=== PATIENT | female | born 1965 | race Caucasian/White ===

== ENCOUNTER 2019-09-30 01:36 | Outpatient (CLI) | payer OTHER, SELFPAY ==
[2019-09-30 18:20] LABS: SARS-CoV-2 RNA PCR Negative
== END 2019-09-30 01:37 | disposition home or self-care (01) ==
LOC: ANHCOVIDDT 01:36
PROVIDERS: PCP Family Medicine; Visit Provider Internal Medicine Gastroenterology
DX: Z01.812 Encounter for preprocedural laboratory examination (principal); Z11.59 Encounter for screening for other viral diseases
CPT/HCPCS: 87635; C9803; U0003

== ENCOUNTER 2021-02-23 10:09 | Emergency (ER) | payer OTHER, SELFPAY ==
[2021-02-23 11:21] VITALS: BP 141/92; PULSE 79; RESP 18; TEMP 36.4; O2SAT 100
--- NOTE | 2021-02-23 12:05 | ED.URI ---
HPI - URI/Sore Throat General Chief Complaint: Upper Respiratory Infection Stated Complaint: nasal congestion,headache Time Seen by Provider: 02/23/21 11:51 Source: patient and RN notes reviewed Mode of arrival: ambulatory Limitations: no limitations History of Present Illness HPI Narrative: Patient presents today complaining of sore throat and headache since yesterday. Denies any additional symptoms to include fever, cough, congestion, rhinorrhea. Currently rates her pain 4/10 and has been taking Tylenol with mild relief. She has been vaccinated against COVID-19 and influenza. MD elicited complaint: sore throat Related Data Home Medications Medication Instructions Recorded Confirmed atorvastatin [Lipitor] 20 mg PO DAILY 09/24/19 09/24/19 cetirizine [Zyrtec] 10 mg PO DAILY 09/24/19 09/24/19 estradiol [Estrace] 1 mg PO DAILY 09/24/19 09/24/19 omeprazole 20 mg PO DAILY 09/24/19 09/24/19 Allergies Allergy/AdvReac Type Severity Reaction Status Date / Time morphine Allergy Intermediate HIVES Verified 09/24/19 15:16 Sulfa (Sulfonamide Allergy Intermediate HIVES Verified 09/24/19 15:16 Antibiotics) Review of Systems Review of Systems: CONSTITUTIONAL: Denies body aches, fever, chills, or sweats. EYES: Denies visual changes, redness, or discharge. ENT: Denies rhinorrhea, congestion, or otalgia.+ Throat CARDIOVASCULAR: Denies chest pain, palpitations, or edema. RESPIRATORY: Denies cough or dyspnea. GASTROINTESTINAL: Denies abdominal pain, nausea, vomiting, or diarrhea. GENITOURINARY: Denies dysuria or hematuria. SKIN: Denies rash, itching, or wounds. MUSCULOSKELETAL: Denies back pain, joint pain, or myalgia. NEUROLOGIC: Denies numbness, tingling, or weakness.+ Headache PSYCH: Denies depression or anxiety. [facility] Social History Social History Gender identity (if verbalized by the patient): Female Sexual Orientation (if Verbalized by the Patient): Straight or Heterosexual Comments At time of signature, I have reviewed and agree with nursing past medical, surgical, social and family history unless otherwise noted. Please see nursing chart for further information. There is no relevant family history pertinent to the presenting complaint Exam Narrative: GENERAL: Well-appearing, well-nourished, and in no acute distress. HEAD: Normocephalic, atraumatic. EYES: EOMI. No redness or drainage. Conjunctivae normal. ENT: Mucous membranes pink and moist. Nares clear. No rhinorrhea. TMs normal bilaterally. Throat mildly erythematous without edema or exudate. Uvula midline. NECK: Normal AROM. Supple. No lymphadenopathy. CHEST: No respiratory distress. Clear to auscultation. HEART: Regular rate and rhythm. No murmur appreciated. Normal peripheral pulses. EXTREMITIES: Normal range of motion. No edema. SKIN: Warm, dry, no rash. Capillary refill normal. Normal skin turgor. NEURO: No focal deficits. Alert and oriented x3. Gait steady. PSYCH: Normal affect. No signs of depression or anxiety. Course Course Level of Care: Express Care Visit Vital Signs Vital signs: Vital Signs Temperature 97.5 F L 02/23/21 11:21 Pulse Rate 79 02/23/21 11:21 Respiratory Rate 18 02/23/21 11:21 Blood Pressure 141/92 H 02/23/21 11:21 Pulse Oximetry 100 02/23/21 11:21 Temperature 97.5 F L 02/23/21 11:21 Pulse Rate 79 02/23/21 11:21 Respiratory Rate 18 02/23/21 11:21 Blood Pressure 141/92 H 02/23/21 11:21 Pulse Oximetry 100 02/23/21 11:21 Reviewed. Pt has been instructed to follow up with her PCP regarding her elevated blood pressure today. MDM - URI/Sore Throat Differential Diagnosis Differential diagnosis: Likely upper respiratory infection, pharyngitis and other (Strep throat, COVID-19) Lab Data Attestation: I reviewed the patient's lab results. Lab results narrative: Rapid COVID-19 negative, rapid strep negative Critical Care Time Brijesh
== END 2021-02-23 12:46 | disposition home or self-care (01) ==
PROVIDERS: Emergency Provider Nurse Practitioner; PCP Family Medicine
DX: J06.9 Acute upper respiratory infection, unspecified (principal); Z20.822 Contact with and (suspected) exposure to COVID-19
CPT/HCPCS: 87081; 87426; 87880; 99213; C9803; G0463

== ENCOUNTER 2021-09-01 15:00 | Outpatient (NON) | payer OTHER, SELFPAY | END 2021-09-02 09:13 | disposition home or self-care (01) | PROVIDERS: PCP Family Medicine; Visit Provider Internal Medicine Gastroenterology | DX: K20.0 Eosinophilic esophagitis (principal) | CPT/HCPCS: 88305 ==

== ENCOUNTER 2023-11-26 11:50 | Emergency (ER) | payer OTHER, SELFPAY ==
[2023-11-26 12:03] VITALS: BP 144/93; PULSE 81; RESP 16; TEMP 36; O2SAT 100
--- NOTE | 2023-11-26 12:18 | ED.GENADULT ---
HPI - General Adult General Chief complaint: Upper Respiratory Infection Stated complaint: HOOKS,left ear pain Time Seen by Provider: 11/26/23 12:18 Source: patient, RN notes reviewed and old records reviewed Mode of arrival: ambulatory Limitations: no limitations History of Present Illness HPI narrative: 58-year-old female presents to the [facility] with complaints of a headache and left ear pain. HX of migraines and has plenty of medication to treated. Ear pain started after she returned from vacation. Reports it as a pressure Related Data Home Medications Medication Instructions Recorded Confirmed atorvastatin 20 mg tablet (Lipitor) 40 mg PO DAILY 09/24/19 11/26/23 cetirizine 10 mg tablet (Zyrtec) 10 mg PO DAILY 09/24/19 11/26/23 estradiol 1 mg tablet (Estrace) 0.5 mg PO DAILY 07/27/21 11/26/23 amitriptyline 25 mg tablet 25 mg PO HS 11/26/23 11/26/23 ezetimibe 10 mg tablet 5 mg PO DAILY 11/26/23 11/26/23 levocetirizine 5 mg tablet 5 mg PO DAILY 11/26/23 11/26/23 phentermine 15 mg capsule 15 mg PO DAILY 11/26/23 11/26/23 ubrogepant 100 mg tablet (Ubrelvy) 100 mg PO PRN PRN Migraine Headache 11/26/23 11/26/23 valacyclovir 1 gram tablet 1 mg PO PRN PRN Cold Sores 11/26/23 11/26/23 Allergies Allergy/AdvReac Type Severity Reaction Status Date / Time morphine AdvReac Mild HIVES Verified 11/26/23 12:11 Sulfa (Sulfonamide AdvReac Mild HIVES Verified 11/26/23 12:11 Antibiotics) Review of Systems Review of Systems: All systems reviewed & are unremarkable except as noted in HPI and below Constitutional: Constitutional: Reports no additional constitutional complaints Eyes: Eyes: Reports no additional eye complaints ENT: Reports as per HPI Cardiovascular: Cardiovascular: Reports no additional cardiovascular complaints, Denies chest pain and Denies dyspnea Respiratory: Respiratory: Reports no additional respiratory complaints, Denies chest congestion, Denies cough and Denies dyspnea Gastrointestinal: Gastrointestinal: Reports no additional gastrointestinal complaints, Denies abdominal pain, Denies nausea and Denies vomiting Musculoskeletal: Musculoskeletal: Reports no additional musculoskeletal complaints Integumentary/Breasts: Skin/Breast: Reports system reviewed and no additional complaints, except as docu Neurologic: Reports system reviewed and no additional complaints, except as documented Psychiatric: Psychiatric: Reports no additional psychiatric complaints Allergic/Immunologic: Allergic/Immunologic: Reports no additional allergic/immunologic complaints PMFSH Past Medical History Medical History Eosinophilic esophagitis Family hx of colon cancer Social History Social History Smoking status: Never smoker Alcohol intake: current Drinks per week: 2 Substance use type: does not use Living arrangements: with family Gender identity (if verbalized by the patient): Female Sexual Orientation (if Verbalized by the Patient): Straight or Heterosexual Spiritual care concerns: No Comments At the time of my signature, I reviewed and agree with the nursing past medical, surgical, social, and family history. There is no relevant family history pertinent to the patient complaint. Exam Const: General: cooperative, healthy appearing, comfortable, no acute distress, well developed, alert and well nourished Nutritional Appearance: well nourished Orientation/consciousness: patient oriented x3 Limitations: no limitations HENMT: Head: normal to inspection Ears: hearing grossly normal bilaterally, external ears normal and TM abnormal bulging bilateral, erythematous on the left and with fluid behind the TM on the right Face/Nose/Sinus: Normal external nose present, normal facial exam and face symmetric Face and sinus: normal facial exam and face symmetric Mouth: Yes Normal oral and palatal mucosa present,
== END 2023-11-26 12:38 | disposition home or self-care (01) ==
PROVIDERS: Emergency Provider Nurse Practitioner; PCP Family Medicine
DX: H66.92 Otitis media, unspecified, left ear (principal); R51.9 Headache, unspecified; K20.0 Eosinophilic esophagitis
CPT/HCPCS: 99213; G0463

== ENCOUNTER 2024-04-23 14:19 | Outpatient (CLI) | payer OTHER, SELFPAY | END 2024-04-23 14:20 | disposition home or self-care (01) | PROVIDERS: PCP Family Medicine; Visit Provider Nurse Practitioner Women's Health | DX: Z12.31 Encounter for screening mammogram for malignant neoplasm of breast (principal) | CPT/HCPCS: 77063; 77067 ==

== ENCOUNTER 2024-06-18 00:45 | Day surgery (SDC) | payer OTHER, SELFPAY ==
[2024-06-06 14:46] VITALS: BMI 25.1
--- OUTSIDE RECORDS SUMMARY | 2024-06-18 00:47 | XMS_ITS | Encounter Summary ---
Author Organization [facility] Address 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
--- OUTSIDE RECORDS SUMMARY | 2024-06-18 00:47 | XMS_ITS | Encounter Summary ---
Author Organization [facility] Address 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 Gender Identity Not on file Sexual Orientation Not on file documented as of this encounter Plan of Treatment Not on file documented as of this encounter Procedures Procedure Name Priority Date/Time Associated Diagnosis Comments POC , URINE Routine 04/23/2004 4:55 AM [employer]RE[employer] LAY UP WORKER HEMOGLOBIN AND HEMATOCRIT Routine 03/30/2004 12:27 PM [employer]RE[employer] LAY UP WORKER documented in this encounter Results * POC , URINE (04/23/2004 4:55 AM FIBREGLASS LAY UP WORKER) HCG QUAL URINE Negative Negative INTER FACE SYSTEM SPECIFIC GRAVITY UA 1.020 1.001 - 1.035 INTERFACE SYSTEM 04/23/2004 4:55 AM FIBREGLASS LAY UP WORKER us Aftab John MD POINT OF CARE TESTING Guillermina l Result INTERFACE SYSTEM Refer to clinic/hospital department * HEMOGLOBIN AND HEMATOCRIT (03/30/2004 12:27 PM FIBRE[employer]ASS LAY UP WORKER) HEMOGLOBIN 12.3 11.8 - 14.8 g/dL INTERFACE SYSTEM HEMATOCRIT 37.6 35.5 - 44.0 % INTERFACE SYSTEM 03/30/2004 12:2 7 PM F[employer]RE[employer] LAY UP WORKER us Aftab John MD HEMATOLOGY ORDERABLES Guillermina gandhi Result INTERFACE SYSTEM Refer to clinic/hospital department documented in this encounter Visit Diagnoses Diagnosis Benign neoplasm of ovary- Primary documented in this encounter Care Teams Charge Manager Relationship Specialty Start Date End Date Alpa Acharya MD [address] [address] PCP - General 02/06/15 documented as of this encounter
--- OUTSIDE RECORDS SUMMARY | 2024-06-18 00:47 | XMS_ITS | Clinical Summary ---
Author Organization [facility] Address [address] [facility] [address] [place] [address] Phone Care Team Providers Care Food Checker Name Role Phone Cecil Padilla MD Primary Care Provider [phone] Lj Bishop MD Unavailable [phone] Allergies Active Allergy Reactions Criticality Noted Date Comments Morphine Itching Low 10/18/2012 Sulfa Antibiotics Hives High 03/18/2011 Medications estradiol (ESTRACE) 0.5 MG Tablet Take 0.5 mg by mouth daily. 2 Active pantoprazole (PROTONIX) 40 MG Tablet Delayed Response Take 40 mg by mouth every morning. 2 Active montelukast (SINGULAIR) 10 MG Tablet Take 10 mg by mouth every evening. 2 Active atorvastatin (LIPITOR) 80 MG Tablet Take 80 mg by mouth nightly. 3 Active Qulipta 60 MG Tablet Take 1 tablet every day by oral route in the morning for 90 days. 4 Active Aimovig 70 MG/ML Solution Auto-injector INJECT 1 ML (70 MG TOTAL) INTO THE SKIN EVERY 30 DAYS 4 Active Levocetirizine Dihydrochloride 5 MG Tablet Take 1 tablet every day by oral route as directed for 90 days. Active Active Problems Problem Noted Date Diagnosed Date Seasonal allergies 03/06/2023 03/06/2023 Dysphagia 03/06/2023 03/06/2023 Thrombocytopenic disorder 07/26/20182023 Subclinical hyperthyroidism 07/26/201802/20 Gastroesophageal reflux disease without esophagi tis 01/21/2018 03/06/2023 Immunizations Immunization Administration Dates Next Due Influenza Vaccine, Quadrivalent, PF 12/20/2021,1 02/29/2020 Influenza, Injectable, Quadrivalent 03/24/2016 Influenza, Recombinant, Quadrivalent,injectable, Pf 02/04/2020 Influenza, Seasonal, Injectable, Undefined 01/05,01/09/2014 Family History Medical History Relation Name Comments Heart Disease Father Colon Cancer Mother Asthma Other Relationship ch ild ASTHMA Relation Name Status Comments Father Mother Other Social History Tobacco Use Types Packs/Day Years Used Date Smoking Tobacco: Never Smokeless Tobacco: Never Tobacco Cessation:Counseling Given: Not Answered Alcohol Use Standard Drinks/Week Comments Yes 0 (1 standard drink = 0.6 oz pur e alcohol) Comments Unknown Sex and Gender Information Value Date Recorded Sex Assigned at Not on file Legal Sex Female 10:21 AM LANDING MAN Gender Identity Not on file Sexual Orientation Not on file Last Filed Vital Signs Vital Sign Reading Time Taken Comments Blood Pressure 128/86 03/04/2024 8:27 AM LANDING MAN Pulse 78 03/04/2024 8:27 AM LANDING MAN Temperature 36.6 C (97.8 F) 03/04/2024 8:27 AM LANDING MAN Respiratory Rate 18 03/04/2024 8:27 AM LANDING MAN Oxygen Saturation 95% 03/04/2024 8:27 AM LANDING MAN Inhaled Oxygen Concentration - - Weight 80.6 kg (177 lb 9.6 oz) 03/04/2024 8:27 A M LANDING MAN Height 177.8 cm (5' 10 ) 03/04/2024 8:27 AM LANDING MAN Body Mass Index 25.48 03/04/2024 8:27 AM LANDING MAN Plan of Treatment Upcoming Encounters Date Type Department Care Team (Late st Contact Info) Description 03/03/2025 8:15 AM LANDING MAN Lab [facility] [address] [phone] Lab, Cc [facility] 03/03/2025 8:30 AM LANDING MAN Office Visit [facility] [address] [phone] Lj Bishop MD [address] [place] [phone] Health Maintenance Due Date Last Done Comments Hepatitis C Virus (HCV) Screening 1965 TdaP Immunization 1965 Colonoscopy 2009 Colorectal Cancer Screening 2009 Cologuard 2014 Immunochemical Fecal Occult Blood 2014 Pneumococcal Immunization (50+ years) (1 of 1 - PCV) 2014 Zoster Immunization (1 of 2) 2014 Mammogram 07/28/2019 07/27/2018, 08/2018, 08/04/2017, Additional history exists Influenza Immunization (#1) 10/22/202311/22, 12/29/2020, 02/04/2020, Additional history exists SARS-COV-2 Immunization ( season) 2023 11/01/2021, 12/29/2020, 05/24/2020, Additional history exists Respiratory Syncytial Virus (RSV) Immunization (Adult) (1 - 1-dose 75+ series) 2039 Cervical Cancer Screening (CCS) Discontinued Pap Smear Discontinued 03/16/2015 HPV/Cotest Discontinued Hepatitis B Immunization Aged Out No longer eligible based on patient's age to complete this topic Meningococcal Immunization (ACWY) Aged Out No longer eligible based on patient's age to complete this topic Rotavirus Immunization Aged Out No lo nger eligible based on patient's age to complete this topic Insurance Care Teams Food Checker Relationship Specialty Start Date End Date Cecil Padilla MD [address] [place] [address] PCP - General Family Medicine 01/14/22 Lj Bishop MD [address] [place] [phone] Consulting Physician Oncology 03/04/24
--- OUTSIDE RECORDS SUMMARY | 2024-06-18 00:47 | XMS_ITS | Encounter Summary ---
Author Organization [facility] Address [address] [place] [address] Care Team Providers Care Button Cutter Name Role Phone Alpa Acharya MD Primary Care Provider [phone] Encounter Details Date Type Department Care Team (Latest Contact Info) Description 12/16/1999 Outpatient Historical HIS [facility] John, Aftab Wray MD NO ADDRESS ON FILE Other screening mammogram (Primary Dx) Social History Tobacco Use Types Packs/Day Years Used Date Smoking Tobacco: Never Assessed Comments Unknown Sex and Gender Information Value Date Recorded Sex Assigned at Not on file Legal Sex Female 5:23 AM HEAD OF DATA Gender Identity Not on file Sexual Orientation Not on file documented as of this encounter Plan of Treatment Not on file documented as of this encounter Visit Diagnoses Diagnosis Other screening mammogram- Primary documented in this encounter Care Teams Button Cutter Relationship Specialty Start Date End Date Alpa Acharya MD [address] [facility] [address] [place] [address] PCP - General 02/06/15 documented as of this encounter
--- OUTSIDE RECORDS SUMMARY | 2024-06-18 00:47 | XMS_ITS | Clinical Summary ---
Author Organization [facility] Address [address] [place] [address] Care Team Providers Care Riding Instructor Name Role Phone Bhumika Eduardo SKILLED TRADES TEACHER Primary Care Provider [phone] Lindsey Colby MD Unavailable [phone] Deya Perea NP Unavailable [phone] Vijay Gregory MD Unavailable [phone] Allergies Active Allergy Reactions Criticality Noted Date Comments Morphine Itching Low 10/18/2012 Sulfa Antibiotics Hives High 03/18/2011 Medications estradiol (ESTRACE) 0.5 MG tablet Take 1 tablet (0.5 mg total) by mouth daily. 4 Active atogepant (QULIPTA) tabletIndications:M igraine without aura and without status migrainosus, not intractable Take 1 tablet (60 mg total) by mouth daily. 30 tablet 11 4 12/22/19 25 Active erenumab-aooe (AIMOVIG) 70 mg/mL injection (autoinjector)Indic ations:Migraine without aura and without status migrainosus, not intractable Inject 1 mL (70 mg total) into the skin every 30 (thirty) days. 1 mL 11 4 01/09/20 25 Active valACYclovir (VALTREX) 1 g tablet Take 0.5 tablets (500 mg total) by mouth daily. Active ezetimibe (ZETIA) 10 MG tabletIndications:M ixed hyperlipidemia Take 1 tablet (10 mg total) by mouth every other day. 45 tablet 3 5 Active fluticasone propionate (FLONASE) 50 MCG/ACT nasal sprayIndications:Se asonal allergies 2 sprays by Each Nostril route daily. 18.2 mL 5 5 Active montelukast (SINGULAIR) 10 MG tabletIndications:S easonal allergies Take 1 tablet (10 mg total) by mouth every evening. 90 tablet 3 5 Active pantoprazole EC (PROTONIX) 40 MG tabletIndications:G astroesophageal reflux disease without esophagitis Take 1 tablet (40 mg total) by mouth every morning. 90 tablet 3 5 Active cetirizine (ZYRTEC) 10 MG tabletIndications:S easonal allergies Take 1 tablet (10 mg total) by mouth daily as needed. 90 tablet 3 5 Active atorvastatin (LIPITOR) 80 MG tabletIndications:M ixed hyperlipidemia Take 1 tablet (80 mg total) by mouth nightly at bedtime. 90 tablet 3 5 Active erythromycin (ROMYCIN) 5 MG/GM (0.5%) ophthalmic ointmentIndications :Acute conjunctivitis of both eyes, unspecified acute conjunctivitis type Place into both eyes every 6 (six) hours for 7 days. 3.5 g 5 06/19/19 Active Active Problems Problem Noted Date Diagnosed Date Acute urinary tract infection 03/13/2024 Antalgic gait 03/13/2024 Bronchitis 03/13/2024 Cough 03/13/2024 Fever 03/13/2024 Pain in limb 03/13/2024 Pain in throat 03/13/2024 Posterior rhinorrhea 03/13/2024 Rupture of anterior cruciate ligament 03/13/2024 Skin lesion 03/13/2024 Upper respiratory infection 03/13/2024 Viral infection 03/13/2024 Symptoms involving urinary system 03/13/2024 Bright red rectal bleeding 03/05/2024 Decreased hearing of both ears 03/05/2024 Eustachian tube dysfunction, right 03/05/2024 Family history of colon cancer in mother 025 S/P dilatation of esophageal stricture Overview (03/13/2024): Last done 2020. Migraine without aura and wi thout status migrainosus, not intractable 01/09/2024 Acute conjunctivitis 09/18/2023 Allergic conjunctivitis of both eyes 07/06/2023 Dysphagia 03/06/2023 Seasonal allergies 03/06/2023 Low back pain 03/05/2023 Low back strain 03/05/2023 Sinusitis 04/25/2022 Leukopenia 07/07/2021 Tendinitis of left shoulder 06/08/2021 Arthritis of right sacroiliac joint 02/11/2020 Effusion of right knee 02/11/2020 Osteoarthritis of knee 02/03/2020 Chronic allergic conjunctivitis 06/04/2019 Multinodular goiter 08/29/2018 Subclinical hyperthyroidism 07/26/2018 Thrombocytopenic disorder 07/26/2018 Overweight 07/26/2018 Vitamin D deficiency 07/26/2018 Hyperlipidemia 06/18/2018 Basal cell carcinoma of skin 04/30/2018 Gastroesophageal reflux disease without esophagi tis 01/21/2018 Seasonal allergic rhinitis 01/21/2018 Pain in joint of left shoulder 01/15/2018 Anal fistula 10/03/2012 Rectal bleeding 10/03/2012 Resolved Problems Problem Noted Date Diagnosed Date Resolved Date Herpes labialis 04/30/2018 04/16/2024 Encounters Date Type Department Care Team Description 06/11/2024 10:00 AM CDT Office Visit [facility] Family & Internal [address] [address] Mildred Mcgowan MD Eye Problem (Acute possible pink eye / allergies) 06/11/2024 Telephone [facility] & Internal [address] [address] Bhumika Eduardo NP Medication Information (Eye oint ) 06/11/2024 Travel 05/14/2024 8:40 AM CDT Office Visit [facility] Internal [address] [phone] Bhumika Eduardo NP Follow Up 05/14/2024 Travel 05/07/2024 Telephone [facility] Internal [address] [phone] Bhumika Eduardo NP Allergy Injection 04/24/2024 7:20 AM SILVERWARE WASHER Office Visit [address], [address] [place] [phone] Opal Olivier MD Botox Procedure (Botox 155 u) 04/24/2024 Travel 04/23/2024 Scan [facility] Scanned, [facility] 04/18/2024 Scan [facility] Scanned, [facility] 04/17/2024 12:50 PM SILVERWARE WASHER - 04/17/2024 11:59 PM SILVERWARE WASHER Hospital Encounter [facility] [address] [place] [phone] Bhumika Eduardo NP Discharge Disposition: Home or Self Care (Routine Discharge) 04/17/2024 7:00 AM SILVERWARE WASHER Laboratory Only [facility] Internal [address] [phone] Bhumika Eduardo NP 04/17/2024 Travel 04/16/2024 7:20 AM SILVERWARE WASHER Office Visit [facility] Internal [address] [phone] Bhumika Eduardo NP Meet and Greet Provider 04/16/2024 Travel 04/01/2024 7:20 AM SILVERWARE WASHER Office Visit [facility] - [address], [address] [place] [phone] Deya Perea NP Migraine (No migraines /Botox is working) 04/01/2024 Travel 03/28/2024 Telephone [facility] Internal [address] [phone] Bhumika Eduardo NP Question 03/27/2024 9:00 AM SILVERWARE WASHER - 03/27/2024 11:59 PM SILVERWARE WASHER Hospital Encounter [facility] [address] [place], [place] [phone] Bradford Baer PA Discharge Disposition: Home or Self Care (Routine Discharge) 03/27/2024 8:00 AM SILVERWARE WASHER Office Visit [facility] Family & Internal Medicine [facility] [address] [place] [address] Bradford Baer PA URI/ENT Symptoms (Pt c/o cough X 2 months. Pt states she had chills and body aches yesterday. Pt was seen in [place] 2 weeks ago and treated with antibiotics ) 03/27/2024 Travel from Last 3 Months Immunizations Immunization Administration Dates Next Due Influenza (Generic) 11/20/2022,02/04/2020,2014,01/09/2014 Influenza Adult (Generic) 12/20/2021,12/29/2020, 03/24/2016 Family History Medical History Relation Comments Heart Disease Father 06/03/20 Lung Cancer Maternal Grandfather high cholesterol Maternal Grandfather Breast Cancer Maternal Grandmother high cholesterol Maternal Grandmother Cancer Mother 07/01/09 Colon Cancer Mother Relation Status Comments Father Alive Maternal Grandfather Maternal Grandmother Mother Social History Tobacco Use Types Packs/Day Years Used Date Smoking Tobacco: Never Passive Smoke Exposure: Never Smokeless Tobacco: Never Tobacco Cessation:Counseling Given: No Alcohol Use Standard Drinks/Week Comments Yes 0 (1 standard drink = 0.6 oz pur e alcohol) occational PHQ-2 Answer Date Recorded Patient Health Questionnaire-2 Score 0 06/11/2024 Comments No Sex and Gender Information Value Date Recorded Sex Assigned at Female 03/29/2024 7:53 AM SILVERWARE WASHER Legal Sex Female 7:15 PM CDT Gender Identity Female 04/16/2024 7:22 AM SILVERWARE WASHER Sexual Orientation Not on file Last Filed Vital Signs Vital Sign Reading Time Taken Comments Blood Pressure 137/87 06/11/2024 10:10 AM CDT Pulse 88 06/11/2024 10:10 AM CDT Temperature 36.2 C (97.2 F) 06/11/2024 10:10 AM CDT Respiratory Rate 18 06/11/2024 10:10 AM CDT Oxygen Saturation 98% 06/11/2024 10:10 AM CDT Inhaled Oxygen Concentration - - Weight 78.3 kg (172 lb 9.6 oz) 06/11/2024 10:10 AM CDT Height 177.8 cm (5' 10 ) 06/11/2024 10:10 AM CDT Body Mass Index 24.77 06/11/2024 10:10 AM CDT Plan of Treatment Upcoming Encounters Date Type Department Care Team (Late st Contact Info) Description 07/23/2024 7:20 AM CDT Office Visit [facility] [address] [facility] [place] [phone] Opal Olivier MD [address] [place] [phone] 09/30/2024 7:20 AM CDT Office Visit [facility] [address] [facility] [address], [address] [place] [phone] Deya Perea NP [address] [facility] [address] [place] [address] Health Maintenance Due Date Last Done Comments Colorectal Cancer Screening Colonoscopy (10 Years) 1964 Annual Physical 1967 Hepatitis C 1982 Pneumococcal Vaccine: 50+ Years (1 of 1 - PCV) 2014 Zoster Vaccines (1 of 2) 2014 Mammogram Screening 07/27/2020 07/27/2018, 08/04/2017, 05/14/2014, Additional history exists COVID-19 Vaccine ( - season) 2025 11/01/2021, 12/29/2020, 05/24/2020, Additional history exists Postponed from 10/22/2023 (Patient Refused) DTaP, Tdap and Td Vaccines (1 - Tdap) 04/16/2025 Postponed from 1983 (Patient Refused) RSV Immunization or 60+ Years (1 - Risk 60-74 years 1-dose series) 04/16/2025 Postponed fro m 2024 (Patient Refused) PHQ-2 (Physician [place]) Completed 06/11/2024 Meningococcal B Vaccine Aged Out No l onger eligible based on patient's age to complete this topic Meningococcal Vaccine Aged Out No elida pedro eligible based on patient's age to complete this topic RSV Immunizations Under 20 Months Aged Out No longer eligible based on patient's age to complete this topic Procedures Procedure Name Priority Date/Time Associated Diagnosis Comments COLLECTION VENOUS BLOOD VENIPUNCTURE Routine 04/17/2024 7:06 AM SILVERWARE WASHER Subclinical hyperthyroidism Diabetes mellitus screening Mixed hyperlipidemia TSH W/REFLEX Routine 04/17/2024 7:00 AM SILVERWARE WASHER Subclinical hyperthyroidism HEMOGLOBIN, GLYCOSYLATED Routine 04/17/2024 7:00 AM SILVERWARE WASHER Diabetes mellitus screening CBC W/DIFF AUTOMATED Routine 04/17/2024 7:00 AM SILVERWARE WASHER Diabetes mellitus screening COMPREHENSIVE METABOLIC PANEL Routine 04/17/2024 7:00 AM SILVERWARE WASHER Diabetes mellitus screening LIPID PANEL Routine 04/17/2024 7:00 AM SILVERWARE WASHER Mixed hyperlipidemia XR CHEST PA+LAT Routine 03/27/2024 9:22 AM SILVERWARE WASHER Persistent cough CORONAVIRUS (COVID-19) INFLUENZA A & B ANTIGEN IA PANEL Routine 03/27/2024 Suspected COVID-19 virus infection from Last 3 Months Results * TSH W/REFLEX (04/17/2024 7:00 AM SILVERWARE WASHER) TSH 1.149 0.358 - 3.74 uIU/ML 04/17/2024 1:51 PM SILVERWARE WASHER [facility] Comment: HIGH DOSES OF BIOTIN MAY INTERFERE WITH THIS TEST RESULT. CORRELATION TO CLINICAL HISTORY AND PRESENTATION RECOMMENDED. FREE T4 NOT INDICATED 04/17/2024 7:00 AM SILVERWARE WASHER Bhumika Eduardo NP LABORATORY Final Result Performing Organization Address [facility] Co de Phone Number [facility] [address] [place] [address], [place] [phone] * (ABNORMAL) HEMOGLOBIN, GLYCOSYLATED (04/17/2024 7:00 AM SILVERWARE WASHER) HGB A1C 5.7(H) <5.7 % 04/17/2024 1:44 PM SILVERWARE WASHER [facility] Comment: INCREASED RISK OF DIABETES <5.7% NON-DIABETES 5.7-6.4% INCREASED RISK FOR FUTURE DIABETES > OR = 6.5 CONSISTENT WITH DIABETES STANDARDS OF MEDICAL CARE IN DIABETES-2010 DIABETES CARE, 33(SUPP 1): S1-S61,2010 ESTIMATED AVG GLUCOSE 117 mg/dL 04/17/2024 1:44 PM [facility] 04/17/2024 7:00 AM SILVERWARE WASHER Bhumika Eduardo NP LABORATORY Final Result Performing Organization Address [facility] Co de Phone Number [facility] [address] [place] [address], [place] [phone] * (ABNORMAL) COMPREHENSIVE METABOLIC PANEL (04/17/2024 7:00 AM SILVERWARE WASHER) GLUCOSE 89 70 - 99 MG/DL 04/17/2024 1:51 PM SILVERWARE WASHER [facility] BUN 15 7 - 18 MG/DL 04/17/2024 1:51 PM [facility] CREATININE S/P/B 0.89 0.55 - 1.02 MG/DL 04/17/2024 1:51 PM [facility] SODIUM S/P/B 139 136 - 145 MMOL/L 04/17/2024 1:51 PM [facility] POTASSIUM S/P/B 4.7 3.5 - 5.1 MMOL/L 04/17/2024 1:51 PM [facility] CHLORIDE S/P/B 100 100 - 108 MMOL/L 04/17/2024 1:51 PM [facility] CO2 29.7 21 - 32 MMOL/L 04/17/2024 1:51 PM [facility] CALCIUM S/P/B 9.7 8.5 - 10.1 MG/DL 04/17/2024 1:51 PM [facility] BILIRUBIN TOTAL S/P/B 0.7 0.2 - 1.2 MG/DL 04/17/2024 1:51 PM [facility] TOTAL PROTEIN S/P/B 7.2 6.4 - 8.2 G/DL 04/17/2024 1:51 PM [facility] ALBUMIN S/P/B 4.4 3.4 - 5.0 G/DL 04/17/2024 1:51 PM [facility] AST 23 15 - 37 U/L 04/17/2024 1:51 PM [facility] ALT 44 14 - 55 U/L 04/17/2024 1:51 PM [facility] ALKALINE PHOSPHATASE S/P/B 82 50 - 136 U/L 04/17/2024 1:51 PM [facility] ANION GAP 9.3 5 - 15 MMOL/L 04/17/2024 1:51 PM [facility] BUN CREATININE RATIO 16.9 6 - 26 04/17/2024 1:51 PM [facility] A/G RATIO 1.6 1.0 - 2.0 RATIO 04/17/2024 1:51 PM SILVERWARE WASHER [facility] GFR ESTIMATE 74(L) >90 ML/MIN/1.7 3 M2 04/17/2024 1:51 PM [facility] Comment: NOTE: eGFR is not calculated for patients <18 years of age. This is an estimated GFR calculation using the new CKD EPI creatinine equation without race and so does not require a correction factor for race. This estimated GFR should not be used for calculating drug doses. 04/17/2024 7:00 AM SILVERWARE WASHER us Bhumika Eduardo NP LABORATORY Final Result [facility] [address] [place] [address], * LIPID PANEL (04/17/2024 7:00 AM SILVERWARE WASHER) CHOLESTEROL 186 <200.0 MG/DL 04/17/2024 1:51 PM [facility] TRIGLYCERIDES 73 <150 MG/DL 04/17/2024 1:51 PM [facility] HDL 76 >40.0 MG/DL 04/17/2024 1:51 PM [facility] LDL (CALCULATED) 95 <100 MG/DL 04/17/19 1:51 PM [facility] NON HDL CHOLESTEROL 110 <130 MG/DL 04/17 1:51 PM [facility] CHOL/HDL RATIO 2.4 0.0 - 4.5 04/17/2024 1:51 PM [facility] VLDL CALCULATION 15 5 - 55 MG/DL 04/17/2024 1:51 PM [facility] LIPID INTERPRETATION 04/17/2024 1:51 PM [facility] Comment: [facility] REPORT RECOMMENDATIONS: ADULT CHILD LOW RISK: CHOLESTEROL <200 <170 TRIGLYCERIDE <150 --- HDL >=60 --- LDL <100 <110 BORDERLINE: CHOLESTEROL 200-239 170-199 TRIGLYCERIDE 150-199 --- HDL 40-59 --- LDL 100-159 110-129 HIGH RISK: CHOLESTEROL >=240 >=200 TRIGLYCERIDE >=200 --- HDL <40 --- LDL >=160 >=130 04/17/2024 7:00 AM SILVERWARE WASHER us Bhumika Eduardo NP LABORATORY Final Result [facility] [address] [place] [address], [place] [phone] * (ABNORMAL) CBC W/DIFF AUTOMATED (04/17/2024 7:00 AM SILVERWARE WASHER) WBC 4.39(L) 4.4 - 11.0 x10'3/uL 04/17/2024 1:18 PM [facility] RBC 4.38(L) 4.50 - 5.10 x10'6/uL 04/17/2024 1:18 PM [facility] HGB 13.2 12.3 - 15.3 G/DL 04/17/2024 1:18 PM [facility] HCT 41.5 35.9 - 44.6 % 04/17/2024 1:18 PM [facility] MCV 94.7 80.0 - 96.0 FL 04/17/2024 1:18 PM [facility] MCH 30.1 25.3 - 30.9 PG 04/17/2024 1:18 PM [facility] MCHC 31.8 31.0 - 34.1 G/DL 04/17/2024 1:18 PM [facility] RDW 14.2 12.4 - 15.1 % 04/17/2024 1:18 PM [facility] PLT 216 151 - 353 x10'3/uL 04/17/2024 1:18 PM [facility] MPV 10.5 9.6 - 12.0 FL 04/17/2024 1:18 PM [facility] RBC MORPHOLOGY NORMAL 04/17/2024 1:18 PM [facility] PLT MORPH. NORMAL 04/17/2024 1:18 PM [facility] WBC MORPHOLOGY NORMAL 04/17/2024 1:18 PM [facility] LYMPHOCYTES % 37.8 15.8 - 45.0 % 04/17/2024 1:18 PM [facility] NEUTROPHILS % 51.3 42.1 - 71.9 % 04/17/2024 1:18 PM [facility] MONOCYTES % 7.5 5.7 - 12.5 % 04/17/2024 1:18 PM [facility] EOSINOPHILS 2.5 0.0 - 5.6 % 04/17/2024 1:18 PM [facility] BASOPHILS 0.7 0.0 - 1.3 % 04/17/2024 1:18 PM [facility] ABS. NEUTROPHILS 2.25 1.40 - 6.00 x10'3/uL 04/17/2024 1:18 PM [facility] IMMATURE GRANS % 0.2 0.0 - 0.5 % 04/17/2024 1:18 PM [facility] ABS. LYMPHOCYTES 1.66 0.80 - 4.70 x10'3/uL 04/17/2024 1:18 PM [facility] 04/17/2024 7:00 AM SILVERWARE WASHER us Bhumika Eduardo NP LABORATORY Final Result [facility] [address] [place] [address], [place] [phone] * XR CHEST PA+LAT (03/27/2024 9:22 AM SILVERWARE WASHER) Anatomical Region Laterality Modality Chest Radiographic Lian ging 03/28/2024 7:25 AM SILVERWARE WASHER Impressions 03/28/2024 7:26 AM SILVERWARE WASHER =====IMPRESSION:===== No acute findings. Ordered By: BRADFORD BAER Interpreted By: Phillip Wick, 03/28/2024 7:25 AM Narrative 03/28/2024 7:26 AM SILVERWARE WASHER [facility] [address] [place] [address] EXAMINATION: PA AND LATERAL CHEST Exam date/time: 03/27/2024 9:13 AM Reason For Exam: persistent cough Comparison: July 23, 2009 Technique: 2 views. Findings: Heart size normal. Proximal airways unremarkable. No suspicious pulmonary lesion, pneumothorax, or pleural effusion. Procedure Note Alfredo Wick MD - 03/28/2024 [facility] [address] [facility] [place] [address] EXAMINATION: PA AND LATERAL CHEST Exam date/time: 03/27/2024 9:13 AM Reason For Exam: persistent cough Comparison: July 23, 2009 Technique: 2 views. Findings: Heart size normal. Proximal airways unremarkable. No suspiciouspulmonary lesion, pneumothorax, or pleural effusion. =====IMPRESSION:===== No acute findings. Ordered By: BRADFORD BAER Interpreted By: Phillip Wick, 03/28/2024 7:25 AM Bradford Baer PA GENERAL IMAGING Final Result * CORONAVIRUS (COVID-19) INFLUENZA A & B ANTIGEN IA PANEL (03/27/2024) CORONAVIRUS ANTIGEN IA NEGATIVE NEGATIVE -[id number], [place] INFLUENZA A NEGATIVE NEGATIVE MG-[id number], [place] INFLUENZA B NEGATIVE NEGATIVE MG-[id number], [place] Internal Control: VALID VALID -[id number] [place] NASAL STRUCTURE / Unknown 03/27/2024 us Bradford [facility] - GENERAL ORDERAB LES Final Result -[id number], [place] [address] [place] [address], from Last [address] [place] [address] [place] [address] Care Teams Riding Instructor Relationship Specialty [place] [address] [place], [place] [id number] PCP - General Nurse Practitioner Family 03/19/24 Lindsey Colby MD [address] [place] [address] [place] [phone] OBGYN 04/16/24 Deya Perea NP [address] [facility] [address] [place] [address] Nurse Practitioner NEUROLOGY 04/16/24 Vijay Gregory MD [address] [facility] [address] [place] [address] GASTROENTEROLOGY 04/16/24
--- OUTSIDE RECORDS SUMMARY | 2024-06-18 00:47 | XMS_ITS | Clinical Summary ---
Author Organization [facility] Address [address] [place] [address] Phone Care Team Providers Care Upfitter Name Role Phone Alpa Acharya MD Primary Care Provider +1- [phone] Allergies Active Allergy Reactions Criticality Noted Date Comments Morphine Itching Low 10/18/2012 Sulfa (Sulfonamide Antibiotics) Hives High 02/21 Medications estradiol (ESTRACE) 1 mg tablet Take 1 Tablet (1 mg) by mouth daily. 30 Tablet 07/11/2016 Active Active Problems Problem Noted Date Diagnosed Date Anal fistula 10/03/2012 Rectal bleeding 10/03/2012 Family History Medical History Relation Name Comments Healthy Daughter Other Father Heart Blockage, had triple bypass Breast Cancer Maternal Grandmother 60's Cancer Maternal Grandmother Breast Cancer Mother Colon Healthy Son Relation Name Status Comments Brother Alive Daughter Alive Father Alive Maternal Grandfather Maternal Grandmother Mother Paternal Grandfather Paternal Grandmother Son Alive Social History Tobacco Use Types Packs/Day Years Used Date Smoking Tobacco: Never Smokeless Tobacco: Never Alcohol Use Standard Drinks/Week Comments Yes 0 (1 standard drink = 0.6 oz pur e alcohol) SOCIALLY Comments No Sex and Gender Information Value Date Recorded Sex Assigned at Not on file Legal Sex Female 5:23 AM ARCHITECTURE INTERN Gender Identity Not on file Sexual Orientation Not on file Occupation Industry Job Start Date Job End Date Not on file Not on file Not on file Not on file Last Filed Vital Signs Vital Sign Reading Time Taken Comments Blood Pressure 110/76 03/16/2015 9:25 AM ARCHITECTURE INTERN Pulse 71 05/28/2013 4:52 PM CDT Temperature 36.5 C (97.7 F) 10/30/2012 3:20 PM CDT Respiratory Rate 20 01/28/2013 3:48 PM ARCHITECTURE INTERN Oxygen Saturation 99% 10/30/2012 3:20 PM CDT Inhaled Oxygen Concentration - - Weight 78 kg (172 lb) 03/16/2015 9:25 AM ARCHITECTURE INTERN Height 176.8 cm (5' 9.6 ) 03/16/2015 9:25 AM ARCHITECTURE INTERN Body Mass Index 24.96 03/16/2015 9:25 AM ARCHITECTURE INTERN Plan of Treatment Health Maintenance Due Date Last Done Comments DTAP/TDAP/TD VACCINES (1 - Tdap) 1983 HPV/Cotest (21-29) 1985 HPV/Cotest (30-65) 1994 FIT-DNA Q 3 years 2009 FIT/FOBT Q 1 year 2009 ZOSTER VACCINE (1 of 2) 2014 CERVICAL CANCER SCREENING 03/16/2016 PAP SMEAR 03/16/2016 03/16/2015, 02/21, 05/28/2013, Additional history exists Flex Sig/CT Colonography Q 5 years 10/03/2017 10/03/2012 BREAST CANCER SCREENING 07/28/2019 07/28/19 19, 08/04/2017, 05/27/2016, Additional history exists INFLUENZA VACCINE (#1) 2023 7, 01/05/2015, 01/09/2014 COLORECTAL SCREENING 11/09/2024 11/09/2014, 10/04/19 13 Colorectal Cancer Screening 11/09/2024 RSV VACCINE (60+ or ) (1 - 1-dose 75+ series) 2039 HEPATITIS B VACCINES Aged Out No long er eligible based on patient's age to complete this topic Procedures Procedure Name Priority Date/Time Associated Diagnosis Comments MAMMO SCREEN BILAT W OR WO CAD Routine 07/27/2018 10:01 AM CDT Visit for screening mammogram CERV/VAG CYTO SCREEN PAP W/O HPV Routine 03/16/2015 9:19 AM ARCHITECTURE INTERN 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 Findings: A bilateral screening mammogram was performed. Comparison is made to : 08/04/2017 There are scattered fibroglandular densities. No new masses, suspicious calcifications, or areas of asymmetry or distortion are identified. CAD was utilized. Impression: Negative screening mammogram. Recommendation: Routine annual follow-up Overall Assessment: Birads Category 1: Negative Mary Jane ORTIZ MAMMO ORDERABLES Final Result * CERV/VAG CYTOPATH, THIN PREP KEEPER HELPER (CP) (03/16/2015 9:19 AM ARCHITECTURE INTERN) CLINICAL INFORMATION SEE COMMENT 03/19/2015 8:56 AM ARCHITECTURE INTERN [facility] Comment:Information not prov ided LAST MENSTRUAL PERIOD SEE COMMENT 03/19/2015 8:56 AM ARCHITECTURE INTERN [facility] Comment:Information not prov ided PREV PAP: SEE COMMENT 03/19/2015 8:56 AM ARCHITECTURE INTERN [facility] Comment:05/28/13 NIL PREV BX: SEE COMMENT 03/19/2015 8:56 AM ARCHITECTURE INTERN [facility] Comment:Information not prov ided SOURCE Endocervix 03/19/2015 8:56 AM ARCHITECTURE INTERN [facility] ADEQUACY: SEE COMMENT 03/19/2015 8:56 AM ARCHITECTURE INTERN [facility] Comment: SATISFACTORY FOR EVALUATION Source inconsistent with history provided INTERPRETATION SEE COMMENT 03/19/2015 8:56 AM ARCHITECTURE INTERN [facility] Comment:Negative for intraep ithelial lesion or malignancy. COMMENT SEE COMMENT 03/19/2015 8:56 AM ARCHITECTURE INTERN [facility] Comment: This Pap test has been evaluated with computer assisted technology. ORTHOPEDICS TEACHER: SEE COMMENT 03/19/2015 8:56 AM ARCHITECTURE INTERN [facility] Comment: KMY, CT(ASCP) CT screening location: [facility] [address] [address] Endocervical Collection / Unknown 03/16/2015 9:19 AM ARCHITECTURE INTERN 03/16/2015 3:02 PM ARCHITECTURE INTERN Narrative [facility] - 03/19/2015 8:56 AM ARCHITECTURE INTERN Performing Organization Information: Site ID: Name: [facility] Address: [address] [address] Director: Rody Murphy MD us Aftab John MD PATHOLOGY/CYTOLOGY ORDERAB LES Final Result [facility] [address] [place] [address], * MO SIGMOIDOSCOPY FLX DX W/COLLJ SPEC BR/WA IF PFRMD (10/03/2012 3:11 PM CDT) Narrative [facility] - 10/03/2012 3:11 PM CDT Reza Pitt MD 10/03/2012 3:11 PM See office notes Procedure Note Reza Pitt MD - 10/03/2012 3:10 PM CDT See office notes us Reza Pitt MD GI PROCEDURE ORDERABLES Fin al Result [facility] from Last 3 Months or Most Recently Relevant to Health Maintenance Insurance Advance Directives For more information, please contact: [phone] * Full Code (Latest Code Status on File) Date Activated Date Inactivated Comments 10/30/2012 1:00 PM 10/30/2012 5:23 PM * Full Code Date Activated Date Inactivated Comments 10/30/2012 12:31 PM 10/30/2012 1:00 PM Care Teams Upfitter Relationship Specialty Start Date End Date Alpa Acharya MD [address] [address] PCP - General 02/06/15
--- OUTSIDE RECORDS SUMMARY | 2024-06-18 00:48 | XMS_ITS | Clinical Summary ---
Author Organization [facility] Address [address] [place] [address] Care Team Providers Care Ceramics Instructor Name Role Phone Liya Perea DO Primary Care Provider [phone]- [phone] Opal Olivier MD Unavailable +- [phone] Deya Perea NP Unavailable [phone] Lj Bishop MD Unavailable [phone] Allergies Active Allergy Reactions Criticality Noted Date Comments Morphine Itching Low 10/18/2012 Sulfa (Sulfonamide Antibiotics) Hives Reaction: Hives, Medications estradioL (ESTRACE) 0.5 mg tablet Take 1 tablet (0.5 mg total) by mouth daily [address] (PROTONIX) 40 mg EC tablet Take 1 tablet (40 mg total) by mouth real estate rental agent before breakfast 2 Active levocetirizine (XYZAL) 5 mg tablet Take 1 tablet (5 mg total) by mouth daily Active ezetimibe (ZETIA) 10 mg tablet Take 1 tablet (10 mg total) by mouth every other day Active Aimovig Autoinjector 70 mg/mL auto-injector subcutaneous injection Inject 1 mL (70 mg total) under the skin every 30 (thirty) days 4 Active Qulipta 60 mg tablet Take 60 mg by mouth as needed (migraine) 4 Active Active Problems Problem Noted Date Diagnosed Date Family history of colon cancer in mother 025 Assessment & Plan (03/05/2024 10:27 AM SEISMOGRAPH OBSERVER): Referral placed to patient's quality assurance clerk. Bright red rectal bleeding 03/05/2024 Assessment & Plan (03/05/2024 10:26 AM SEISMOGRAPH OBSERVER): Referred to Gastroenterology for further evaluation and management. Currently asymptomatic. Decreased hearing of both ears 03/05/2024 Assessment & Plan (03/05/2024 10:15 AM SEISMOGRAPH OBSERVER): Referred to ENT for further eval/mgmt. S/P dilatation of esophageal stricture Overview (03/05/2024): Last done 2020. Eustachian tube dysfunction, right 03/05/2024 Assessment & Plan (03/05/2024 10:26 AM SEISMOGRAPH OBSERVER): Recommended trial of [id number] Zyrtec D, take 1 tablet every 12 hours the next 7-10 days. May discontinue early if symptoms resolve. Referred to ENT for further evaluation management. Continue Flonase. Seasonal allergic rhinitis 03/05/2024 Assessment & Plan (03/05/2024 10:26 AM SEISMOGRAPH OBSERVER): Referred to highway worker. Patient reports that she gets an allergy shot 1 time a year. She can not remember the name of the shot. Continue oral antihistamine and Flonase. Hold Xyzal until done with Zyrtec D. Encounters Date Type Department Care Team Description 06/06/[address] [facility] Family Medicine at [place] [address] [place] [address] Liya Perea, colonoscopy report from Last 3 Months Immunizations Immunization Administration Dates Next Due Influenza, Quadrivalent, Rec ombinant, Egg Free, Preservative Free, Intramuscular 02/04/2020 Influenza, Quadrivalent, Spl it, Intramuscular 03/24/2016 Influenza, Quadrivalent, Spl it, Preservative Free, Intramuscular 12/20/2021,12/29/2020 Influenza, Trivalent, IM (MDV) 01/05/2015,2013 Influenza, Unspecified 03/05/2024(Deferr ed: Contraindication),11/20/2022,,12/29/2020,02/04/2020,03/24/2016,,01/09/2014 Surgical History Surgery Date Site/Laterality Comments SECTION HYSTERECTOMY Medical History Medical History Date Comments Migraine Hyperlipidemia Family History Medical History Relation Name Comments Heart disease Father Colon cancer Mother Relation Name Status Comments Father Mother Social History Tobacco Use Types Packs/Day Years Used Date Smoking Tobacco: Never Smokeless Tobacco: Never Tobacco Cessation:Counseling Given: Not Answered AUDIT-C Answer Date Recorded Q1: How often do you have a drink containing alc ohol? 2-4 times a month 03/05/2024 Q2: How many drinks containi ng alcohol do you have on a typical day when you are drinking? 1 or 2 03/05/2024 Q3: How often do you have si x or more drinks on one occasion? Never 03/05/2024 PHQ-2 Answer Date Recorded PHQ-2 Total Score 0 03/05/2024 Comments No Sex and Gender Information Value Date Recorded Sex Assigned at Not on file Legal Sex Female 1:21 AM SEISMOGRAPH OBSERVER Gender Identity Not on file Sexual Orientation Not on file Obstetrics History Last Filed Vital Signs Vital Sign Reading Time Taken Comments Blood Pressure 118/72 03/05/2024 9:43 AM SEISMOGRAPH OBSERVER Pulse 85 03/05/2024 9:43 AM SEISMOGRAPH OBSERVER Temperature 37.2 C (99 F) 03/05/2024 9:43 AM SEISMOGRAPH OBSERVER Respiratory Rate 16 03/05/2024 9:43 AM SEISMOGRAPH OBSERVER Oxygen Saturation 99% 03/05/2024 9:43 AM SEISMOGRAPH OBSERVER Inhaled Oxygen Concentration - - Weight 81.6 kg (179 lb 12.8 oz) 03/05/2024 9:43 AM SEISMOGRAPH OBSERVER Height 177.8 cm (5' 10 ) 03/05/2024 9:43 AM SEISMOGRAPH OBSERVER Body Mass Index 25.8 03/05/2024 9:43 AM SEISMOGRAPH OBSERVER Plan of Treatment Health Maintenance Due Date Last Done Comments Colon Cancer Screening-Colonoscopy 1964 Hepatitis C Screening 1964 Hepatitis B Screening 1982 Regular Well Visit/Exam 18-64 1982 Breast Cancer Screening-Mammogram 07/28/2019 07/27/2018, 08/04/2017, 05/27/2016, Additional history exists Covid-19 Vaccine ( season) 2025 11/01/2021, 12/29/2020, 05/24/2020, Additional history exists Postponed from 10/22/2023 (Patient declined, but will receive in the future) Depression Screening 03/05/2025 03/05/2024 Zoster Vaccine (1 of 2) 06/04/2025 Post poned from 2014 (Insurance / Financial) DTaP/Tdap/Td Vaccine (1 - Tdap) 03/01/2027 Postponed from 1975 (Insurance / Financial) Influenza Vaccine Discontinued 11/20/2022, , 12/20/2021, Additional history exists Pneumococcal vaccine <65 Aged Out No longer eligible based on patient's age to complete this topic Procedures Procedure Name Priority Date/Time Associated Diagnosis Comments SCREENING MAMMOGRAM Routine 05/27/2016 6 :35 PM CDT from Last 3 Months or Most Recently Relevant to Health Maintenance Results * Screening Mammogram (05/27/2016 6:35 PM CDT) Anatomical Region Laterality Modality Breast N/A Mammography 05/27/2016 6:35 PM CDT Narrative 05/27/2016 6:35 PM CDT LAUREANO PANIAGUA M.D. FINAL REPORT ACC# Date Time Exam [id number] May 27, 2016 13:35:00 BMV [id number] Scr Mamm hi 2v inc CAD Technologist(s): Barbara Chavira; ; EXAMINATION: Mammogram Technique: Bilateral Full-Field Digital Screening Mammogram was performed. Views obtained: bilateral craniocaudal and bilateral mediolateral oblique. Computer Aided Detection was performed. Mammogram Findings: The present examination has been compared to prior imaging studies performed at [facility] on 04/29/2013, 05/13/2014 and 05/22/2015. The breasts are heterogeneously dense, which may obscure small masses. There is no suspicious abnormality in either breast. IMPRESSION: Annual screening mammography is recommended. OVERALL FINAL ASSESSMENT: BI-RADS CATEGORY 1: Negative. Requested By: Aftab John M.D. Dictated By: LAUREANO PANIAGUA M.D. on May 30 2016 12:38P This document has been electronically signed by: LAUREANO PANIAGUA M.D. on May 30 2016 12:38P [id number] Procedure Note Miscellaneous, Notinfile / Provider, MD Yrn - 07/14/2016 LAUREANO PANIAGUA M.D. FINAL REPORT ACC# Date Time Exam [id number] May 27, 2016 13:35:00 BMV [id number] Scr Mamm hi 2v inc CAD Technologist(s): Barbara Chavira; ; EXAMINATION: Mammogram Technique: Bilateral Full-Field Digital Screening Mammogram was performed. Views obtained: bilateral craniocaudal and bilateral mediolateral oblique. Computer Aided Detection was performed. Mammogram Findings: The present examination has been compared to prior imaging studies performed at [facility] on04/29/2013, 05/13/2014 and 05/22/2015. The breasts are heterogeneously dense, which may obscure small masses. There is no suspicious abnormality in either breast. IMPRESSION: Annual screening mammography is recommended. OVERALL FINAL ASSESSMENT: BI-RADS CATEGORY 1: Negative. Requested By: Aftab John M.D. Dictated By: LAUREANO PANIAGUA M.D. on May 30 2016 12:38P This document has been electronically signed by: LAUREANO PANIAGUA M.D. on May 30 2016 12:38P [id number] us Not In File Miscellaneous IMG MAMMO PROCEDURES F inal Result from Last 3 Months or Most Recently Relevant to Health Maintenance Insurance [facility] CHOICE PLUS [facility] H[facility]/PPO Address: [place] [address] Care Teams Ceramics Instructor Relationship Specialty Start Date End Date Liya Perea DO [address] [facility] [address] [address] PCP - General Family Medicine 03/05/24 Opal Olivier MD [address] [place] [address] Consulting Physician Neurology 06/04/24 Deya Perea NP [address] [facility] [address] [place], [place] [address] Neurology 06/04/24 Lj Bishop MD [address] [place] [address] [place] [address] Referring Physician Medical Oncology 06/04/24
--- OUTSIDE RECORDS SUMMARY | 2024-06-18 00:48 | XMS_ITS | Referral Summary ---
Author Organization [facility] Address [address] [place] [address] Care Team Providers Care Potato Chip Fryer Name Role Phone Liya Perea DO Primary Care Provider [phone]- [phone] Opal Olivier MD Unavailable [phone]- [phone] Deya Perea NP Unavailable [phone] Lj Bishop MD Unavailable [phone] Encounters Date Type Department Care Team Description 06/06/[address] [facility] Family Medicine at [place] [address] [facility] [address] [place] [address] Liya Perea DO colonoscopy report from Last 3 Months Allergies Active Allergy Reactions Criticality Noted Date Comments Morphine Itching Low 10/18/2012 Sulfa (Sulfonamide Antibiotics) Hives Reaction: Hives, Medications estradioL (ESTRACE) 0.5 mg tablet Take 1 tablet (0.5 mg total) by mouth daily [address] (PROTONIX) 40 mg EC tablet Take 1 tablet (40 mg total) by mouth prism measurer before breakfast 2 Active levocetirizine (XYZAL) 5 [...] 025 Assessment & Plan (03/05/2024 10:27 AM MOISTURE METER OPERATOR): Referral placed to patient's thread cutter tender. Bright red rectal bleeding 03/05/2024 Assessment & Plan (03/05/2024 10:26 AM MOISTURE METER OPERATOR): Referred to Gastroenterology for further evaluation and management. Currently asymptomatic. Decreased hearing of both ears 03/05/2024 Assessment & Plan (03/05/2024 10:15 AM MOISTURE METER OPERATOR): Referred to ENT for further eval/mgmt. S/P dilatation of esophageal stricture 5 Overview (03/05/2024): Last done 2020. Eustachian tube dysfunction, right 03/05/2024 Assessment & Plan (03/05/2024 10:26 AM MOISTURE METER OPERATOR): Recommended trial of [id number] Zyrtec D, take 1 tablet every 12 hours the next 7-10 days. May discontinue early if symptoms resolve. Referred to ENT for further evaluation management. Continue Flonase. Seasonal allergic rhinitis 03/05/2024 Assessment & Plan (03/05/2024 10:26 AM MOISTURE METER OPERATOR): Referred to installation supervisor. Patient reports that she gets an allergy shot 1 time a year. She can not remember the name of the shot. Continue oral antihistamine and Flonase. Hold Xyzal until done with Zyrtec D. Immunizations Immunization Administration Dates Next Due Influenza, Quadrivalent, Rec ombinant, Egg Free, Preservative Free, Intramuscular 02/04/2020 Influenza, Quadrivalent, Spl it, Intramuscular 03/24/2016 Influenza, Quadrivalent, Spl it, Preservative Free, Intramuscular 12/20/2021,12/29/2020 Influenza, Trivalent, IM (MDV) 01/05/2015,2013 Influenza, Unspecified 03/05/2024(Deferr ed: Contraindication),11/20/2022,,12/29/2020,02/04/2020,03/24/2016,,01/09/2014 Social History Tobacco Use Types Packs/Day Years [...] on file Legal Sex Female 1:21 AM MOISTURE METER OPERATOR Gender Identity Not on file Sexual Orientation Not on file Last Filed Vital Signs Vital Sign Reading Time Taken Comments Blood Pressure 118/72 03/05/2024 9:43 AM MOISTURE METER OPERATOR Pulse 85 03/05/2024 9:43 AM MOISTURE METER OPERATOR Temperature 37.2 C (99 F) 03/05/2024 9:43 AM MOISTURE METER OPERATOR Respiratory Rate 16 03/05/2024 9:43 AM MOISTURE METER OPERATOR Oxygen Saturation 99% 03/05/2024 9:43 AM MOISTURE METER OPERATOR Inhaled Oxygen Concentration - - Weight 81.6 kg (179 lb 12.8 oz) 03/05/2024 9:43 AM MOISTURE METER OPERATOR Height 177.8 cm (5' 10 ) 03/05/2024 9:43 AM MOISTURE METER OPERATOR Body Mass Index 25.8 03/05/2024 9:43 AM MOISTURE METER OPERATOR Plan of Treatment Not on file Procedures Procedure Name Priority Date/Time Associated Diagnosis Comments SCREENING MAMMOGRAM Routine 05/27/2016 6 :35 PM CDT from Last 3 Months or Most Recently Relevant to Health Maintenance Results * Screening Mammogram (05/27/2016 6:35 PM CDT) Anatomical Region Laterality Modality Breast N/A Mammography 05/27/2016 6:35 PM CDT Narrative 05/27/2016 6:35 PM CDT LAUREANO PANIAGUA M.D. FINAL REPORT ACC# Date Time Exam [id number] May 27, 2016 13:35:00 BMV [id number] Scr Mamm hi 2v inc CAD Technologist(s): Barbara Chavira; ; EXAMINATION: Mammogram Technique: Bilateral Full-Field Digital Screening Mammogram was performed. Views obtained: bilateral craniocaudal and bilateral mediolateral oblique. Computer Aided Detection was performed. Mammogram Findings: The present examination has been compared to prior imaging studies performed at [facility] on 04/29/2013, 05/13/2014 and [...] PANIAGUA M.D. on May 30 2016 12:38P [id number] Procedure Note Miscellaneous, Notinfile / Provider, MD Yrn - 07/14/2016 LAUREANO PANIAGUA M.D. FINAL REPORT ACC# Date Time Exam [id number] May 27, 2016 13:35:00 BMV [id number] Scr Mamm hi 2v inc CAD Technologist(s): Barbara Chavira; ; EXAMINATION: Mammogram Technique: Bilateral Full-Field Digital Screening Mammogram was performed. Views obtained: bilateral craniocaudal and bilateral mediolateral oblique. Computer Aided Detection was performed. Mammogram Findings: The present examination has been compared to prior imaging studies performed at [facility] on04/29/2013, 05/13/2014 and 05/22/2015. [...] PANIAGUA M.D. on May 30 2016 12:38P [id number] us Not In File Miscellaneous IMG MAMMO PROCEDURES F inal Result from Last 3 Months or Most Recently Relevant to Health Maintenance Insurance [facility] CHO[facility] PLUS Care Teams Potato Chip Fryer Relationship Specialty Start Date End Date Liya Perea DO [address] [facility] [place] [address] PCP - General Family Medicine 03/05/24 Opal Olivier MD [address] [place] [address] Consulting Physician Neurology 06/04/24 Deya Perea NP [address] [facility] [facility] [address] [place] [address] Neurology 06/04/24 Lj Bishop MD [address] [place] [address] [address] [place] [address] Referring Physician Medical Oncology 06/04/24
--- OUTSIDE RECORDS SUMMARY | 2024-06-18 00:48 | XMS_ITS | Data Portability ---
Author Organization [place] - [employer], Main Office Address [address] [place] [address] Care Team Providers Care Marble Setter Helper Name Role Phone CECIL PADILLA Primary Care Provider [phone] CECIL PADILLA Referring Provider Assessment Encounter Date Assessment Date Assessment LastModified by Organization Details LastModified Time 07/06/2023 07/06/2023 58 yo F with - WELL ADULT VISIT - HLD - LEUKOPENIA, chronic - MULTINODULAR GOITER - GERD - SEASONAL ALLERGIC RHINITIS - MIGRAINE - VIT D DEFICIENCY - OVERWEIGHT - H/O HERPES LABIALIS - H/O BCC (Lt thigh) - H/O SUBCLINICAL HYPERTHYROIDISM - H/O THROMBOCYTOPENIA - FH OF COLON CANCER (Mom) US neck: 09/23/22. Annual labs: 07/13/22. US neck: 07/05/21. Annual labs: 07/01/21. X-ray Rt knee & Rt hip: 02/05/20. US thyroid: 08/12/19. Annual labs: 08/12/19. US thyroid: 08/10/18. Annual labs: 04/30/18. X-ray Lt shoulder: 01/18/18. Wt: 175(07/26/18) - 169(08/29/18) - 166(10/08/18) - 167(11/08/18) [Pt stopped] Wt: 170(08/19/19) [Pt stopped] Wt: 179(07/19/22) - 176(10/03/22) D/w pt about her findings, recent labs & imagines and further plan of care. Will do routine labs. Meds as directed. Risks Vs benefits of Aspirin 81mg po daily with food explained. Pt agreed. Diet and exercise explained in detail. Cont f/u with Hemat as per schedule. Cont f/u with Gyne at [place] as per schedule. Cont f/u with GI at [facility] as per schedule. Cont f/u with Derm at [place] as per schedule. Cont f/u with Ophtho at [place] as per schedule. Pt has finished PT and now doing at home. Offered to refer to Endo; but pt declined. Offered to refer to [facility] [employer] [facility]; but pt declined. HM: WWE - 06/13, normal as per pt. Cont f/u with Gyne as per schedule. Mammo - 01/25/23, normal. Pt gets with her Gyne. EGD - 09/10, good as per pt. Cont f/u with GI as per schedule. Colonoscopy - 09/10, normal as per pt. Cont f/u with GI every 5 yrs as per schedule. DEXA - 08/10/18, normal. Ordered. Tdap - 11/07. Flu - 12/20/21. Pneumo - Never. Pt declined. Shingrix - At pharmacy/HD. F/u in 2-3 weeks. US thyroid in 10/13. Annual labs in 07/14. [email or web address] Not available 07/06/2023 09:30:52 08/07/2023 08/07/2023 The patient gave verbal consent using TelePhonic services and the consent is documented in the medical record prior to using the service. The patient has been informed of what a TeleMedicine visit is. Patient is located at home. Provider is located at office. Names and roles of persons in addition to the patient and provider participating in telemedicine services include staff. The patient had a 11 minute TeleMedicine consultation via phone call to discuss the followin yo F with - HLD - LEUKOPENIA, chronic - MULTINODULAR GOITER - GERD - SEASONAL ALLERGIC RHINITIS - MIGRAINE - VIT D DEFICIENCY - OVERWEIGHT - H/O HERPES LABIALIS - H/O BCC (Lt thigh) - H/O SUBCLINICAL HYPERTHYROIDISM - H/O THROMBOCYTOPENIA - FH OF COLON CANCER (Mom) Annual labs: 07/06/23. X-ray L-spine: 03/06/23. US neck: 09/23/22. Annual labs: 07/13/22. US neck: 07/05/21. Annual labs: 07/01/21. X-ray Rt knee & Rt hip: 02/05/20. US thyroid: 08/12/19. Annual labs: 08/12/19. US thyroid: 08/10/18. Annual labs: 04/30/18. X-ray Lt shoulder: 01/18/18. Wt: 175(07/26/18) - 169(08/29/18) - 166(10/08/18) - 167(11/08/18) [Pt stopped] Wt: 170(08/19/19) [Pt stopped] Wt: 179(07/19/22) - 176(10/03/22) [Pt stopped] D/w pt about her findings, recent labs & imagines and further plan of care. Meds as directed. Risks Vs benefits of Aspirin 81mg po daily with food explained. Pt agreed. Black box warning of Montelukast explained to pt. Diet and exercise explained in detail. Cont f/u with Hemat as per schedule. Cont f/u with Gyne at [place] as per schedule. Cont f/u with GI at [facility] as per schedule. Cont f/u with Derm at [facility] as per schedule. Cont f/u with Ophtho at [place] as per schedule. Pt has finished PT and now doing at home. Offered to refer to Endo; but pt declined. Offered to refer to [facility] Operations [facility]; but pt declined. HM: WWE - 06/13, normal as per pt. Cont f/u with Gyne as per schedule. Mammo - 01/25/23, normal. Pt gets with her Gyne. EGD - 09/10, good as per pt. Cont f/u with GI as per schedule. Colonoscopy - 09/10, normal as per pt. Cont f/u with GI every 5 yrs as per schedule. DEXA - 08/10/18, normal. Ordered. Tdap - 11/07. Flu - 12/20/21. Pneumo - Never. Pt declined. Shingrix - At pharmacy/HD. F/u in 3-4 months. Lipids in 11/13. US thyroid in 10/13. Annual labs in 07/14. [email or web address] Not available 08/07/2023 17:26:23 10/16/2023 10/16/2023 58 yo F with - HLD - LEUKOPENIA, chronic - MULTINODULAR GOITER - GERD - SEASONAL ALLERGIC RHINITIS - MIGRAINE - VIT D DEFICIENCY - OVERWEIGHT - H/O HERPES LABIALIS - H/O BCC (Lt thigh) - H/O SUBCLINICAL HYPERTHYROIDISM - H/O THROMBOCYTOPENIA - FH OF COLON CANCER (Mom) US thyroid: 10/11/23. Annual labs: 07/06/23. X-ray L-spine: 03/06/23. US neck: 09/23/22. Annual labs: 07/13/22. US neck: 07/05/21. Annual labs: 07/01/21. X-ray Rt knee & Rt hip: 02/05/20. US thyroid: 08/12/19. Annual labs: 08/12/19. US thyroid: 08/10/18. Annual labs: 04/30/18. X-ray Lt shoulder: 01/18/18. Wt: 175(07/26/18) - 169(08/29/18) - 166(10/08/18) - 167(11/08/18) [Pt stopped] Wt: 170(08/19/19) [Pt stopped] Wt: 179(07/19/22) - 176(10/03/22) [Pt stopped] Wt: 180(10/16/23) D/w pt about her findings, recent labs & imagines and further plan of care. Meds as directed. Risks Vs benefits of Aspirin 81mg po daily with food explained. Pt agreed. Black box warning of Montelukast explained to pt. Diet and exercise explained in detail. Cont f/u with Neuro at [facility] as per schedule. Cont f/u with Hemat as per schedule. Cont f/u with Gyne at [place] as per schedule. Cont f/u with GI at [facility] as per schedule. Cont f/u with Derm at [facility] as per schedule. Cont f/u with Ophtho at [place] as per schedule. Pt has finished PT and now doing at home. Offered to refer to Endo; but pt declined. Offered to refer to [employer] Operations [employer]; but pt declined. HM: WWE - 06/13, normal as per pt. Cont f/u with Gyne as per schedule. Mammo - 01/25/23, normal. Pt gets with her Gyne. EGD - 09/10, good as per pt. Cont f/u with GI as per schedule. Colonoscopy - 09/10, normal as per pt. Cont f/u with GI every 5 yrs as per schedule. DEXA - 10/11/23, normal. Tdap - 11/07. Flu - 12/20/21. Pneumo - Never. Pt declined. Shingrix - At pharmacy/HD. F/u in 2 months. Annual labs in 07/14. US thyroid in 10/14. [email or web address] Not available 10/16/2023 10:01:17 12/13/2023 12/13/2023 58 yo F with - WT LOSS PROGRAM - HLD - LEUKOPENIA, chronic - MULTINODULAR GOITER - GERD - SEASONAL ALLERGIC RHINITIS - MIGRAINE - VIT D DEFICIENCY - OVERWEIGHT - H/O HERPES LABIALIS - H/O BCC (Lt thigh) - H/O SUBCLINICAL HYPERTHYROIDISM - H/O THROMBOCYTOPENIA - FH OF COLON CANCER (Mom) US thyroid: 10/11/23. Annual labs: 07/06/23. X-ray L-spine: 03/06/23. US neck: 09/23/22. Annual labs: 07/13/22. US neck: 07/05/21. Annual labs: 07/01/21. X-ray Rt knee & Rt hip: 02/05/20. US thyroid: 08/12/19. Annual labs: 08/12/19. US thyroid: 08/10/18. Annual labs: 04/30/18. X-ray Lt shoulder: 01/18/18. Wt: 175(07/26/18) - 169(08/29/18) - 166(10/08/18) - 167(11/08/18) [Pt stopped] Wt: 170(08/19/19) [Pt stopped] Wt: 179(07/19/22) - 176(10/03/22) [Pt stopped] Wt: 180(10/16/23) - 176(12/13/23) D/w pt about her findings, recent labs & imagines and further plan of care. Meds as directed. Risks Vs benefits of Aspirin 81mg po daily with food explained. Pt agreed. Black box warning of Montelukast explained to pt. Diet and exercise explained in detail. Cont f/u with Neuro at [place] as per schedule. Cont f/u with Hemat as per schedule. Cont f/u with Gyne at [place] as per schedule. Cont f/u with GI at [facility] as per schedule. Cont f/u with Derm at [facility] as per schedule. Cont f/u with Ophtho at [place] as per schedule. Pt has finished PT and now doing at home. Offered to refer to Endo; but pt declined. Offered to refer to [employer] Operations [employer]; but pt declined. Zepbound and Wegovy are not covered with her insurance. HM: WWE - 06/13, normal as per pt. Cont f/u with Gyne as per schedule. Mammo - 01/25/23, normal. Pt gets with her Gyne. EGD - 09/10, good as per pt. Cont f/u with GI as per schedule. Colonoscopy - 09/10, normal as per pt. Cont f/u with GI every 5 yrs as per schedule. DEXA - 10/11/23, normal. Tdap - 11/07. Flu - Pt gets at her pharmacy. Pneumo - Never. Pt declined. Shingrix - At pharmacy/HD. F/u in 2 months. Annual labs in 07/14. US thyroid in 10/14. Not available 12/13/2023 09:22:04 Plan of Treatment Reminders Order Date Submit Date Provider Last Modified By Organization Details Last Modified Time Details Appointments None recorded. Lab lipid panel, serum 2023 024 [email or web address] [employer] [facility], [address], [address], 4 08:13:10 HbA1c (hemoglobin A1c), blood 2023 024 [email or web address] [employer] [facility], [address], [address], 4 07:57:48 vitamin D, 25-hydroxy, total, serum 2023 024 [email or web address] [employer] [facility], [address], [address], 4 07:57:48 CBC w/ auto diff 2023 024 [facility], [address] , [place], [address], 4 15:16:46 CMP, serum or plasma 2023 024 [facility], [address], [place], [address], 4 15:24:09 lipid panel, serum 2023 024 [facility], [address] , [place], [address], 4 15:24:39 TSH, serum, reflex free T4 2023 [email or web address] [employer] [facility], [address], [address], 4 07:57:47 urinalysis complete, reflex culture 2023 024 [email or web address] [employer] [facility], [address], [address], 4 07:57:48 Referral None recorded. Procedures None recorded. Surgeries None recorded. Imaging US, thyroid - *Please call pt to schedule in [place]* 2023 024 [email or web address] 256 [facility] ([facility]), [address] [place], [address], 4 09:45:52 DEXA 2023 024 [email or web address] Not available 4 16:53:34 Medication Orders phentermine 30 mg capsule [address] [facility] #[id number], [address], [place], [address], 4 09:12:51 Qulipta 60 mg tablet 2023 024 [facility] #6926, [address], [place], [address], 4 09:12:49 atorvastati n 80 mg tablet 2023 024 [facility] #6926, [address], [place], [address], 4 09:12:49 ezetimibe 10 mg tablet 2023 024 [email or web address] [facility], [address] [facility], [place], [address], 4 09:13:02 levocetiriz ine 5 mg tablet 2023 024 [facility]6926, [address] [facility], [place], [address], 4 09:20:51 phentermine 15 mg capsule 2023 024 [email or web address] [facility], [address], [place], [address], 4 09:21:21 Zepbound 2.5 mg/0.5 mL subcutaneou s pen injector [address] [facility]6926, [address], [place], [address], 4 09:21:45 pantoprazol e 40 mg tablet,leydi yed release 2023 024 [email or web address] [facility], [address], [place], [address], 09:19:21 atorvastati n 80 mg tablet 2023 024 NATHAN [facility], [address], [place], [address], 09:20:51 ezetimibe 10 mg tablet 2023 024 [id number] [facility], [address], [place], [address], 09:20:55 levocetiriz ine 5 mg tablet 2023 024 [facility], [address], [place], [address], 17:53:36 sumatriptan 50 mg tablet 2023 024 [facility], [address], [place], [address], 17:54:52 atorvastati n 80 mg tablet 2023 024 [facility], [address], [place], [address], 17:53:33 ezetimibe 10 mg tablet 2023 024 [facility], [address], [place], [address], 17:53:33 levocetiriz ine 5 mg tablet 2023 024 [facility], [address], [place], [address], 4 09:24:13 azelastine 0.05 % eye drops 2023 024 [email or web address] [facility], [address], [place], [address], 15:09:20 Nurtec ODT 75 mg disintegrat ing tablet [address] [facility][id number], [address] [facility], [place], [address], 09:21:18 Kenalog 40 mg/mL suspension for injection 2023 024 [email or web address] Not available 09:21:13 Patient TargetsNo targets recorded. Patient Instructions Encounter Date Encounter Id Patient Instructions Last Modified By Organization Details Last Modified Time 08/07/2023 [id number] Due to the COVID-19 (Novel Coronavirus) pandemic, it is within this context (and with the understanding that this method of patient encounter is in the patient s best interest as well as the health and safety of other patients and the public) that [facility] is being provided [facility] this patient encounter rather than a [id number] visit. This patient encounter is appropriate at this time. This patient has been advised of the potential risks and limitations of this mode of treatment (including, but not limited to, the absence of in-person examination) and has agreed to be treated in a remote fashion despite these risks. Any and all of the patient s /patient s family s questions on this issue have been answered, and I have made no promises or guarantees to the patient. The patient has also been advised to contact this office for worsening conditions or problems, and seek emergency medical treatment and/or call 911 if the patient deems either necessary. HPI and/or vitals, if listed, were provided by the patient. [email or web address] Not available 08/07/2023 16:56:12 Reason for Referral None Reported. Results Created Date Observation Date Name Description Value Unit Range Abnormal Flag Note LastModifiedBy Organization Detail LastModifiedTime 07/06/1907/06/2023 CBC/C OMPLE TE BLD COUNT W/DIF F white blood cells 4.0 x10'3 /uL 4.2-10 .8 low Not Available [facility] (Lab) [address] [place], [address], 07/06/2023 15:16:46 07/06/19 24 07/06/2023 CBC/C OMPLE TE BLD COUNT W/DIF F red blood cells 4.36 x10'6 /uL 3.80-5 .20 Not Available [facility] (Lab) [address] [place], [address], 07/06/2023 15:16:46 07/06/19 24 07/06/2023 CBC/C OMPLE TE BLD COUNT W/DIF F hemoglobin 13.5 g/dL 12.0-1 5.6 Not Available [facility] (Lab) [address] [place], [address], 07/06/2023 15:16:46 07/06/19 24 07/06/2023 CBC/C OMPLE TE BLD COUNT W/DIF F hematocrit 41.4 % 35.7-4 5.7 Not Available [facility] (Lab) [address] [place], [address], 07/06/2023 15:16:46 07/06/19 24 07/06/2023 CBC/C OMPLE TE BLD COUNT W/DIF F mean red cell volume 95.0 fL 82.0-9 9.0 Not Available [facility] (Lab) [address] [place], [address], 07/06/2023 15:16:46 07/06/19 24 07/06/2023 CBC/C OMPLE TE BLD COUNT W/DIF F mean red cell hemoglobin 31.0 pg 27.0-3 3.0 Not Available [facility] (Lab) [address] [place], [address], 07/06/2023 15:16:46 07/06/19 24 07/06/2023 CBC/C OMPLE TE BLD COUNT W/DIF F mean RBC HGB concentratio n 32.6 g/dL 31.0-3 6.0 Not Available [facility] (Lab) [address] [place], [address], 07/06/2023 15:16:46 07/06/19 24 07/06/2023 CBC/C OMPLE TE BLD COUNT W/DIF F red cell distribution width 13.5 % 11.8-1 5.5 Not Available [facility] (Lab) [address] [place], [address], 07/06/2023 15:16:46 07/06/19 24 07/06/2023 CBC/C OMPLE TE BLD COUNT W/DIF F platelets 216 x10'3 /uL 150-40 0 Not Available [facility] (Lab) [address] [place], [address], 07/06/2023 15:16:46 07/06/19 24 07/06/2023 CBC/C OMPLE TE BLD COUNT W/DIF F mean platelet volume 11.3 fL 9.0-12 .4 Not Available [facility] (Lab) [address] [place], [address], 07/06/2023 15:16:46 07/06/19 24 07/06/2023 CBC/C OMPLE TE BLD COUNT W/DIF F neutrophils 54.6 % 39.0-7 2.0 Not Available [facility] (Lab) [address] [place], [address], 07/06/2023 15:16:46 07/06/19 24 07/06/2023 CBC/C OMPLE TE BLD COUNT W/DIF F lymphocytes 32.2 % 16.0-4 7.0 Not Available [facility] (Lab) [address] [place], [address], 07/06/2023 15:16:46 07/06/19 24 07/06/2023 CBC/C OMPLE TE BLD COUNT W/DIF F monocytes 8.1 % 5.0-12 .0 Not Available [facility] (Lab) [address] [place], [address], 07/06/2023 15:16:46 07/06/19 24 07/06/2023 CBC/C OMPLE TE BLD COUNT W/DIF F eosinophils 4.3 % 1.0-7. 0 Not Available [facility] (Lab) [address] [place], [address], 07/06/2023 15:16:46 07/06/19 24 07/06/2023 CBC/C OMPLE TE BLD COUNT W/DIF F basophils 0.5 % 0.0-2. 0 Not Available [facility] (Lab) [address] [place], [address], 07/06/2023 15:16:46 07/06/19 24 07/06/2023 CBC/C OMPLE TE BLD COUNT W/DIF F immature granulocytes 0.3 % 0.00-0 .50 Not Available [facility] (Lab) [address] [place], [address], 07/06/2023 15:16:46 07/06/19 24 07/06/2023 CBC/C OMPLE TE BLD COUNT W/DIF F neutrophils, absolute count 2.17 x10'3 /uL 1.5-8. 0 Not Available [facility] (Lab) [address] [place], [address], 07/06/2023 15:16:46 07/06/19 24 07/06/2023 CBC/C OMPLE TE BLD COUNT W/DIF F lymphocytes, absolute count 1.28 x10'3 /uL 1.07-3 .43 Not Available [facility] (Lab) [address] [place], [address], 07/06/2023 15:16:46 07/06/19 24 07/06/2023 CBC/C OMPLE TE BLD COUNT W/DIF F monocytes, absolute count 0.32 x10'3 /uL 0.29-0 .99 Not Available [facility] (Lab) [address] [place], [address], 07/06/2023 15:16:46 07/06/19 24 07/06/2023 CBC/C OMPLE TE BLD COUNT W/DIF F eosinophils, absolute count 0.17 x10'3 /uL 0.02-0 .53 Not Available [facility] (Lab) [address] [place], [address], 07/06/2023 15:16:46 07/06/19 24 07/06/2023 CBC/C OMPLE TE BLD COUNT W/DIF F basophils, absolute count 0.02 x10'3 /uL 0.01-0 .08 Not Available [facility] (Lab) [address] [place], [address], 07/06/2023 15:16:46 07/06/19 24 07/06/2023 CBC/C OMPLE TE BLD COUNT W/DIF F immature granulocytes ,absolute 0.01 x10'3 /uL 0.00-0 .05 Not Available [facility] (Lab) [address] [place], [address], 07/06/2023 15:16:46 07/06/19 24 07/06/2023 CBC/C OMPLE TE BLD COUNT W/DIF F nucleated red blood cells 0.0 % -0 Not Available [facility] (Lab) [address] [place], [address], 07/06/2023 15:16:46 07/06/19 24 07/06/2023 CBC/C OMPLE TE BLD COUNT W/DIF F NRBC# 0.00 x10'3 /uL Not Available [facility] (Lab) [address] [place], [address], 07/06/2023 15:16:46 07/06/19 24 07/06/2023 COMPR EHENS JUSTEN METAB OLIC PANEL sodium 136 mmol/ L 137-14 5 low Not Available [facility] (Lab) [address] [place], [address], 07/06/2023 15:24:09 07/06/19 24 07/06/2023 COMPR EHENS JUSTEN METAB OLIC PANEL potassium 4.0 mmol/ L 3.5-5. 1 Not Available [facility] (Lab) [address] [place], [address], 07/06/2023 15:24:09 07/06/19 24 07/06/2023 COMPR EHENS JUSTEN METAB OLIC PANEL chloride 103 mmol/ L 98-107 Not Available [facility] (Lab) [address] [place], [address], 07/06/2023 15:24:09 07/06/19 24 07/06/2023 COMPR EHENS JUSTEN METAB OLIC PANEL carbon dioxide 25 mmol/ L 22-30 Not Available [facility] (Lab) [address] [place], [address], 07/06/2023 15:24:09 07/06/19 24 07/06/2023 COMPR EHENS JUSTEN METAB OLIC PANEL anion gap 12.0 mmol/ L 14-22 low Not Available [facility] (Lab) [address] [place], [address], 07/06/2023 15:24:09 07/06/19 24 07/06/2023 COMPR EHENS JUSTEN METAB OLIC PANEL glucose 92 mg/dL 70-99 Not Available [facility] (Lab) [address] [place], [address], 07/06/2023 15:24:09 07/06/19 24 07/06/2023 COMPR EHENS JUSTEN METAB OLIC PANEL BUN 20 mg/dL 8-19 high Not Available [facility] (Lab) [address] [place], [address], 07/06/2023 15:24:09 07/06/19 24 07/06/2023 COMPR EHENS JUSTEN METAB OLIC PANEL creatinine 0.79 mg/dL 0.66-1 .25 Not Available [facility] (Lab) [address] [place], [address], 07/06/2023 15:24:09 07/06/19 24 07/06/2023 COMPR EHENS JUSTEN METAB OLIC PANEL GFR >60 Refer ence Range : Mead ge GFR Healt hy Adult : >60 mL/mi n/1.7 3 m2 Chron ic Kidne y Disea se: 15-60 mL/mi n/1.7 3 m2 Kidne y Failu re: <15/m L/min /1.73 m2 www.n iddk. nih.g ov The MDRD study equat ion has not been valid ated in child amanda <18 years of age; pregn ant women ; the elder ly >85 years of age; or in some racia l or ethni c subgr oups, such as Hiswa nics. Outsi de the valid ated skip eters , estim ated GFR is less accur ate, requi ring clini matty judgm ent on a case- by-ca se basis . Clini matty inter preta tion for other races and ages must be made by the clini eliceo. The MDRD study equat ion has not been valid ated for the evalu ation of serum creat inine relat ed to nutri baltazar l statu s or medic ation usage . For perso ns <18 years of age, a pedia tric GFR calcu lator is avail able on the [facility] websi te: https :[email or web address] w.jazzy milan.o rg/pr ofess ional s/kdo qi/gf r_cal culat or Not Available [facility] (Lab) [address] [place], [address], 07/06/2023 15:24:09 07/06/1907/06/2023 COMPR EHENS JUSTEN METAB OLIC PANEL alkaline phosphatase 87 U/L 38-126 Not Available [facility] (Lab) [address] [place], [address], 07/06/2023 15:24:09 07/06/19 24 07/06/2023 COMPR EHENS JUSTEN METAB OLIC PANEL alanine aminotransfe rase 47 U/L 0-35 high Not Available [facility] (Lab) [address] [place], [address], 07/06/2023 15:24:09 07/06/19 24 07/06/2023 COMPR EHENS JUSTEN METAB OLIC PANEL aspartate aminotransfe rase 42 U/L 15-37 high Not Available [facility] (Lab) [address] [place], [address], 07/06/2023 15:24:09 07/06/19 24 07/06/2023 COMPR EHENS JUSTEN METAB OLIC PANEL bilirubin, total 0.60 mg/dL 0.20-1 .30 Not Available [facility] (Lab) [address] [place], [address], 07/06/2023 15:24:09 07/06/19 24 07/06/2023 COMPR EHENS JUSTEN METAB OLIC PANEL calcium 9.3 mg/dL 8.4-10 .2 Not Available [facility] (Lab) [address] [place], [address], 07/06/2023 15:24:09 07/06/19 24 07/06/2023 COMPR EHENS JUSTEN METAB OLIC PANEL total protein 6.9 g/dL 6.3-8. 2 Not Available [facility] (Lab) [address] [place], [address], 07/06/2023 15:24:09 07/06/19 24 07/06/2023 COMPR EHENS JUSTEN METAB OLIC PANEL albumin 4.5 g/dL 3.4-5. 0 Not Available [facility] (Lab) [address] [place], [address], 07/06/2023 15:24:09 07/06/19 24 07/06/2023 COMPR EHENS JUSTEN METAB OLIC PANEL globulin 2.4 g/dL 2.6-4. 2 low Not Available [facility] (Lab) [address] [place], [address], 07/06/2023 15:24:09 07/06/19 24 07/06/2023 COMPR EHENS JUSTEN METAB OLIC PANEL A/G ratio 1.9 ratio 1.0-2. 0 Not Available [facility] (Lab) [address] [place], [address], 07/06/2023 15:24:09 07/06/19 24 07/06/2023 LIPID PANEL cholesterol 210 mg/dL 140-19 9 high [facility] KENDY NSUS RECOM MENDA TION FOR KASSY STERO L: ADULT CHILD LOW RISK: <200 <170 BORDE RLINE : <200- 239 ----- HIGH RISK: >240 >200 Not Available [facility] (Lab) [address] [place], [address], 07/06/2023 15:24:39 07/06/19 24 07/06/2023 LIPID PANEL triglyceride s 64 mg/dL 0-150 [facility] KENDY NSUS REPOR T RECOM MENDA TION FOR TRIGL YCERI LALO: ADULT CHILD LOW RISK: <150 ----- BODER LINE: 150-1 99 ----- HIGH RISK: >200 ----- Not Available [facility] (Lab) [address] [place], [address], 07/06/2023 15:24:39 07/06/19 24 07/06/2023 LIPID PANEL HDL cholesterol 93 mg/dL 40- Not Available [facility] (Lab) [address] [place], [address], 07/06/2023 15:24:39 07/06/19 24 07/06/2023 LIPID PANEL LDL cholesterol, calculated 104 mg/dL 0-130 NIH KENDY NSUS REPOR T RECOM MENDA TIONS FOR LDL: ADULT CHILD LOW RISK <130 <110 (OPTI MAL LDL) <100 ----- BORDE RLINE : 130-1 59 ----- HIGH RISK: >160 >130 A TRIGL YCERI DE RESUL T >400 INVAL IDATE S THE CALCU LATIO N FOR LDL FRACT IONAT ION - THE LDL RESUL T WILL NOT BE REPOR J CARLOS. Not Available [facility] (Lab) [address] [place], [address], 07/06/2023 15:24:39 07/06/1907/06/2023 HEMOG LOBIN A1C HA1C 5.5 % 4.0-6. 0 Diabe marni Scree zaida Crite franklin: <5.7% Consi stent with absen ce of diabe marni 5.7-6 .4% Consi stent with incre ased risk for diabe marni (pred iabet es) >OR=6 .5% Consi stent with diabe marni REFER ENCE: Diabe marni Care 2015, 39(Marshall ppl.1 ):s13 -s22 Not Available [facility] (Lab) [address] [place], [address], 07/06/2023 16:54:11 07/06/1907/06/2023 VITAM IN D 25-HY DROXY vd25oh 32.8 NG/mL 30-100 Vitam in D Statu s: Defic ient: <20 ng/mL Insuf ficie nt: 20-29 ng/mL Suffi cient : 30-10 0 ng/mL Not Available [facility] (Lab) [address] [place], [address], 07/06/2023 17:32:50 07/06/1907/06/2023 TEST NOT PERFO RMED test not performed SEE COMMEN T UNABL E TO PERFO RM URINA LYSIS WITH REFLE X DUE TO NOT URINE SPECI MEN REC'D IN LAB Not Available [facility] (Lab) [address] [place], [address], 07/06/2023 18:17:13 07/06/19 24 07/07/2023 TSH W/REF HELADIO FT4 TSH with reflex free T4 0.763 uIU/m L 0.465- 4.680 Not Available [facility] (Lab) [address] [place], [address], 07/07/2023 15:05:28 10/05/19 24 10/06/2023 LIPID PANEL , STAND ABNER cholesterol, total 163 mg/dL <200 normal Not Available [address] [address] [place], [address], 10/06/2023 22:13:05 10/05/19 24 10/06/2023 LIPID PANEL , STAND ABNER HDL cholesterol 74 mg/dL > or = 50 normal Not Available [address] [address] [place], [address], 10/06/2023 22:13:05 10/05/19 24 10/06/2023 LIPID PANEL , STAND ABNER triglyceride s 69 mg/dL <150 normal Not Available [facility] [address] [address] [place], [address], 10/06/2023 22:13:05 10/05/19 24 10/06/2023 LIPID PANEL , STAND ABNER LDL-choleste rol 74 mg/dL _(matty c) normal Refer ence range : <100 Vianey able range <100 mg/dL for prima ry preve ntion ; <70 mg/dL for patie nts with CHD or diabe tic patie nts with > or = 2 CHD risk facto rs. LDL-C is now calcu lated using the Rashmi n-Hop kins marisolu katerine n, which is a valid ated novel jonas menjivar than the Fried brisa equat ion in the estim ation of LDL-C . Rashmi john SS et al. CONOR. 2013; 310(1 9): 2061- 2068 (http ://ed ucati on.Qu estDi LocoMobi. com/f aq/FA Q164) Not Available [address], [address], 10/06/2023 22:13:05 10/05/19 24 10/06/2023 LIPID PANEL , STAND ABNER chol/HDLC ratio 2.2 (calc ) <5.0 normal Not Available [address], [address], 10/06/2023 22:13:05 10/05/19 24 10/06/2023 LIPID PANEL , STAND ABNER non HDL cholesterol 89 mg/dL _(matty c) <130 normal For patie nts with diabe marni plus 1 major ASCVD risk facto r, treat ing to a non-H DL-C goal of <100 mg/dL (LDL- C of <70 mg/dL ) is consi danya a mando pejames c optio n. Not Available [address], [address], 10/06/2023 22:13:05 10/05/19 24 10/06/2023 COMPR EHENS JUSTEN METAB OLIC PANEL glucose 87 mg/dL 65-99 normal Fasti ng refer ence inter ephraim Not Available [address], [address], 10/06/2023 22:13:05 10/05/19 24 10/06/2023 COMPR EHENS JUSTEN METAB OLIC PANEL urea nitrogen (BUN) 16 mg/dL 7-25 normal Not Available [address], [address], 10/06/2023 22:13:05 10/05/19 24 10/06/2023 COMPR EHENS JUSTEN METAB OLIC PANEL creatinine 0.83 mg/dL 0.50-1 .03 normal Not Available [address], [address], 10/06/2023 22:13:05 10/05/19 24 10/06/2023 COMPR EHENS JUSTEN METAB OLIC PANEL eGFR 81 mL/mi n/1.7 3m2 > or = 60 normal Not Available [address], [address], 10/06/2023 22:13:05 10/05/19 24 10/06/2023 COMPR EHENS JUSTEN METAB OLIC PANEL BUN/creatini ne ratio SEE NOTE: (calc ) 6-22 Not Repor j carlos: BUN and Creat inine are withi n refer ence range . Not Available [address], [address], 10/06/2023 22:13:05 10/05/19 24 10/06/2023 COMPR EHENS JUSTEN METAB OLIC PANEL sodium 139 mmol/ L 135-14 6 normal Not Available [address], [address], 10/06/2023 22:13:05 10/05/19 24 10/06/2023 COMPR EHENS JUSTEN METAB OLIC PANEL potassium 4.5 mmol/ L 3.5-5. 3 normal Not Available [address], [address], 10/06/2023 22:13:05 10/05/19 24 10/06/2023 COMPR EHENS JUSTEN METAB OLIC PANEL chloride 103 mmol/ L 98-110 normal Not Available [address], [address], 10/06/2023 22:13:05 10/05/19 24 10/06/2023 COMPR EHENS JUSTEN METAB OLIC PANEL carbon dioxide 27 mmol/ L 20-32 normal Not Available [address], [address], 10/06/2023 22:13:05 10/05/19 24 10/06/2023 COMPR EHENS JUSTEN METAB OLIC PANEL calcium 9.1 mg/dL 8.6-10 .4 normal Not Available [facility] [address], [address], 10/06/2023 22:13:05 10/05/19 24 10/06/2023 COMPR EHENS JUSTEN METAB OLIC PANEL protein, total 6.6 g/dL 6.1-8. 1 normal Not Available [address], [address], 10/06/2023 22:13:05 10/05/19 24 10/06/2023 COMPR EHENS JUSTEN METAB OLIC PANEL albumin 4.3 g/dL 3.6-5. 1 normal Not Available [address], [address], 10/06/2023 22:13:05 10/05/19 24 10/06/2023 COMPR EHENS JUSTEN METAB OLIC PANEL globulin 2.3 g/dL_ (calc ) 1.9-3. 7 normal Not Available [address], [address], 10/06/2023 22:13:05 10/05/19 24 10/06/2023 COMPR EHENS JUSTEN METAB OLIC PANEL albumin/glob ulin ratio 1.9 (calc ) 1.0-2. 5 normal Not Available [address], [address], 10/06/2023 22:13:05 10/05/19 24 10/06/2023 COMPR EHENS JUSTEN METAB OLIC PANEL bilirubin, total 0.4 mg/dL 0.2-1. 2 normal Not Available [address], [address], 10/06/2023 22:13:05 10/05/19 24 10/06/2023 COMPR EHENS JUSTEN METAB OLIC PANEL alkaline phosphatase 69 U/L 37-153 normal Not Available [address], [address], 10/06/2023 22:13:05 10/05/19 24 10/06/2023 COMPR EHENS JUSTEN METAB OLIC PANEL AST 25 U/L 10-35 normal Not Available [address], [address], 10/06/2023 22:13:05 10/05/19 24 10/06/2023 COMPR EHENS JUSTEN METAB OLIC PANEL ALT 28 U/L 6-29 normal Not Available [address], [address], 10/06/2023 22:13:05 10/05/19 24 10/06/2023 CBC (INCL UDES DIFF/ PLT) white blood cell count 4.2 thous and/u L 3.8-10 .8 normal Not Available [address], [address], 10/06/2023 22:13:06 10/05/19 24 10/06/2023 CBC (INCL UDES DIFF/ PLT) red blood cell count 4.42 irina on/uL 3.80-5 .10 normal Not Available [address], [address], 10/06/2023 22:13:06 10/05/19 24 10/06/2023 CBC (INCL UDES DIFF/ PLT) hemoglobin 13.5 g/dL 11.7-1 5.5 normal Not Available [address], [address], 10/06/2023 22:13:06 10/05/19 24 10/06/2023 CBC (INCL UDES DIFF/ PLT) hematocrit 42.4 % 35.0-4 5.0 normal Not Available [address], [address], 10/06/2023 22:13:06 10/05/19 24 10/06/2023 CBC (INCL UDES DIFF/ PLT) MCV 95.9 fL 80.0-1 00.0 normal Not Available [address], [address], 10/06/2023 22:13:06 10/05/19 24 10/06/2023 CBC (INCL UDES DIFF/ PLT) MCH 30.5 pg 27.0-3 3.0 normal Not Available [address], [address], 10/06/2023 22:13:06 10/05/19 24 10/06/2023 CBC (INCL UDES DIFF/ PLT) MCHC 31.8 g/dL 32.0-3 6.0 low Not Available [address], [address], 10/06/2023 22:13:06 10/05/19 24 10/06/2023 CBC (INCL UDES DIFF/ PLT) RDW 12.8 % 11.0-1 5.0 normal Not Available [address], [address], 10/06/2023 22:13:06 10/05/19 24 10/06/2023 CBC (INCL UDES DIFF/ PLT) platelet count 167 thous and/u L 140-40 0 normal Not Available [address], [address], 10/06/2023 22:13:06 10/05/19 24 10/06/2023 CBC (INCL UDES DIFF/ PLT) MPV 9.9 fL 7.5-12 .5 normal Not Available [address], [address], 10/06/2023 22:13:06 10/05/19 24 10/06/2023 CBC (INCL UDES DIFF/ PLT) absolute neutrophils 2268 cells /uL 1500-7 800 normal Not Available [address], [address], 10/06/2023 22:13:06 10/05/19 24 10/06/2023 CBC (INCL UDES DIFF/ PLT) absolute lymphocytes 1361 cells /uL 850-39 00 normal Not Available [address], [address], 10/06/2023 22:13:06 10/05/19 24 10/06/2023 CBC (INCL UDES DIFF/ PLT) absolute monocytes 269 cells /uL 200-95 0 normal Not Available [address], [address], 10/06/2023 22:13:06 10/05/19 24 10/06/2023 CBC (INCL UDES DIFF/ PLT) absolute eosinophils 260 cells /uL 15-500 normal Not Available [address], [address], 10/06/2023 22:13:06 10/05/19 24 10/06/2023 CBC (INCL UDES DIFF/ PLT) absolute basophils 42 cells /uL 0-200 normal Not Available [address], [address], 10/06/2023 22:13:06 10/05/19 24 10/06/2023 CBC (INCL UDES DIFF/ PLT) neutrophils 54 % normal Not Available [address], [address], 10/06/2023 22:13:06 10/05/19 24 10/06/2023 CBC (INCL UDES DIFF/ PLT) lymphocytes 32.4 % normal Not Available [address], [address], 10/06/2023 22:13:06 10/05/19 24 10/06/2023 CBC (INCL UDES DIFF/ PLT) monocytes 6.4 % normal Not Available [address], [address], 10/06/2023 22:13:06 10/05/19 24 10/06/2023 CBC (INCL UDES DIFF/ PLT) eosinophils 6.2 % normal Not Available [address], [address], 10/06/2023 22:13:06 10/05/19 24 10/06/2023 CBC (INCL UDES DIFF/ PLT) basophils 1.0 % normal Not Available [address], [address], 10/06/2023 22:13:06 10/05/19 24 10/06/2023 URINA LYSIS , COMPL ETE W/REF HELADIO TO CULTU RE color YELLOW yellow normal Not Available [address], [address], 10/06/2023 22:13:06 10/05/19 24 10/06/2023 URINA LYSIS , COMPL ETE W/REF HELADIO TO CULTU RE appearance CLEAR clear normal Not Available [address], [address], 10/06/2023 22:13:06 10/05/19 24 10/06/2023 URINA LYSIS , COMPL ETE W/REF HELADIO TO CULTU RE specific gravity 1.020 1.001- 1.035 normal Not Available [address], [address], 10/06/2023 22:13:06 10/05/19 24 10/06/2023 URINA LYSIS , COMPL ETE W/REF HELADIO TO CULTU RE pH 5.5 5.0-8. 0 normal Not Available [address], [address], 10/06/2023 22:13:06 10/05/19 24 10/06/2023 URINA LYSIS , COMPL ETE W/REF HELADIO TO CULTU RE glucose NEGATI VE negati ve normal Not Available [address] [address] [place], [address], 10/06/2023 22:13:06 10/05/19 24 10/06/2023 URINA LYSIS , COMPL ETE W/REF HELADIO TO CULTU RE bilirubin NEGATI VE negati ve normal Not Available [facility] [address], [address], 10/06/2023 22:13:06 10/05/19 24 10/06/2023 URINA LYSIS , COMPL ETE W/REF HELADIO TO CULTU RE ketones NEGATI VE negati ve normal Not Available [facility] [address], [address], 10/06/2023 22:13:06 10/05/19 24 10/06/2023 URINA LYSIS , COMPL ETE W/REF HELADIO TO CULTU RE occult blood TRACE negati ve abnormal Not Available [address] [place], [address], 10/06/2023 22:13:06 10/05/19 24 10/06/2023 URINA LYSIS , COMPL ETE W/REF HELADIO TO CULTU RE protein NEGATI VE negati ve normal Not Available [address], [address], 10/06/2023 22:13:06 10/05/19 24 10/06/2023 URINA LYSIS , COMPL ETE W/REF HELADIO TO CULTU RE nitrite NEGATI VE negati ve normal Not Available [facility] [address] [address] [place], [address], 10/06/2023 22:13:06 10/05/19 24 10/06/2023 URINA LYSIS , COMPL ETE W/REF HELADIO TO CULTU RE leukocyte esterase TRACE negati ve abnormal Not Available [facility] [address] [place], [address], 10/06/2023 22:13:06 10/05/19 24 10/06/2023 URINA LYSIS , COMPL ETE W/REF HELADIO TO CULTU RE WBC 0-5 /hpf < or = 5 normal Not Available [address], [address], 10/06/2023 22:13:06 10/05/19 24 10/06/2023 URINA LYSIS , COMPL ETE W/REF HELADIO TO CULTU RE RBC 0-2 /hpf < or = 2 normal Not Available [address], [address], 10/06/2023 22:13:06 10/05/19 24 10/06/2023 URINA LYSIS , COMPL ETE W/REF HELADIO TO CULTU RE squamous epithelial cells 6-10 /hpf < or = 5 abnormal Not Available [address], [address], 10/06/2023 22:13:06 10/05/19 24 10/06/2023 URINA LYSIS , COMPL ETE W/REF HELADIO TO CULTU RE bacteria FEW /hpf none seen abnormal Not Available [address], [address], 10/06/2023 22:13:06 10/05/19 24 10/06/2023 URINA LYSIS , COMPL ETE W/REF HELADIO TO CULTU RE hyaline cast NONE SEEN /lpf none seen normal Not Available [address], [address], 10/06/2023 22:13:06 10/05/19 24 10/06/2023 URINA LYSIS , COMPL ETE W/REF HELADIO TO CULTU RE note This urine was gretchen zed for the prese nce of WBC, RBC, bacte franklin, casts , and other forme d eleme nts. Only those eleme nts seen were repor j carlos. Not Available [address], [address], 10/06/2023 22:13:06 10/05/19 24 10/06/2023 REFLE XIVE URINE CULTU RE reflexive urine culture CULTU RE INDIC ATED - RESUL TS TO FOLLO W Not Available [address] [address] [place], [address], 10/06/2023 22:13:07 10/05/1910/06/2023 TSH W/REF HELADIO TO FT4 TSH w/reflex to FT4 1.25 mIU/L 0.40-4 .50 normal Not Available [facility] [address] , [place], [address], 10/06/2023 22:13:07 10/05/19 24 10/06/2023 VITAM IN D,25- OH,TO LAMBERTO,I A vitamin D,25-oh,tota l,ia 31 NG/mL 30-100 normal Vitam in D Statu s 25-OH Vitam in D: Defic iency : <20 ng/mL Insuf ficie ncy: 20 - 29 ng/mL Optim al: > or = 30 ng/mL For 25-OH Vitam in D testi ng on patie nts on D2-marshall pplem entat ion and patie nts for whom quant itati on of D2 and D3 fract ions is requi red, the [facility] eD(TM ) 25-OH VIT D, (D2,D 3), LC/MS /MS is recom darien d: order code 47406 (luciano ents >2yrs ). See Note 1 Note 1 For addit ional infor risa bland refer to http: //cindi Martinez stDia gnost ics.c om/fa q/FAQ 199 (This link is being provi ded for infor rosmery escamilla/ colton gandhi purpo ses only. ) Not Available [facility] [address] , [place], [address], 10/06/2023 22:13:08 10/05/1910/06/2023 HEMOG LOBIN A1C hemoglobin A1C 5.7 %_of_ total _HGB <5.7 high For someo ne witho ut known diabe marni, a hemog lobin A1c value betwe en 5.7% and 6.4% is consi stent with predi abete s and shoul d be confi rmed with a follo w-up test. For someo ne with known diabe marni, a value <7% indic ates that their diabe marni is well contr olled . A1c targe ts shoul d be indiv idual ized based on durat ion of diabe marni, age, comor bid condi tions , and other consi derat ions. This assay resul t is consi stent with an incre ased risk of diabe marni. Curre ntly, no conse nsus exist s regar ding use of hemog lobin A1c for diagn osis of diabe marni for child amanda. This test was perfo rmed on the [employer] muna c503 platf orm. Effec tive , a naye stout in test platf orms from the [employer] tect to the Nathen muna c503 may have shift ed HbA1c resul ts tianna red to histo rical resul ts. Based on labor atory valid ation testi ng condu cted at [employer] , the Nathen platf orm relat justen to the [employer] platf orm had an avera ge incre ase in HbA1c value of < or = 0.3%. This diffe rence is withi n accep j carlos varia bilit y estab lishe d by the Natio nal [employer] hemog lobin Stand olesyadiz ation Progr am. Note that not all indiv idual s will have had a shift in their resul ts and direc t tianna rison s betwe en histo rical and curre nt resul ts for testi ng condu cted on diffe rent platf orms is not recom darien d. Not Available [employer] [facility] [address], [place], [address], 10/06/2023 22:13:08 10/05/19 24 10/06/2023 CULTU RE, URINE , ROUTI NE culture, urine, routine SEE NOTE CULTU RE, URINE , ROUTI NE Micro Numbe r: [id number] Test Statu s: Final Speci men Sourc e: Urine Speci men Quali ty: Adequ ate Resul t: No Growt h Not Available [employer] [facility] [address] [place], [address], 10/06/2023 22:13:09 10/11/19 24 US, head + neck, soft tissu e [facility] [address] [facility] n [facility], [facility] [place] [address] Patien t Name: DARIA BENAVIDES Access ion #: [id number] Sex: F : 1965 1 Dictat ed By: Yolis Blair Attend ing Physic lori: DARIAN PADILLA Orderi ng Physic lori: DARIAN PADILLA Exam Date: 2023 14:52 PM Exam Name: US NECK/H EAD SOFT TISSUE Admitt ing Diagno sis(es ): ULTRAS OUND SOFT TISSUE [facility] INDICA TION: Multin odular goiter TECHNI QUE: Multip le real time sonogr aphic images of the thyroi d were obtain ed. COMPAR JULIANO: Prior exam dated 2022; 2021 FINDIN GS: The right thyroi d gland measur es 5.2 x 1.8 x 1.5 cm. The left thyroi d gland measur es approx imatel y 5.6 x 1.9 x 1.9 cm. The isthmu s measur es 0.5 cm. There is a TI-RAD S 4 nodule in the right inferi or thyroi d gland measur ing 0.8 cm. There are subcen timete r TI-RAD S 3 nodule s in the left thyroi d gland measur ing 0.2 and 0.3 cm. IMPRES BRAD: 1. A TI-RAD S 4 nodule in the right inferi or thyroi d gland measur ing 0.8 cm. Additi onal subcen timete r TI-RAD S 3 nodule s in the left thyroi d gland. No furthe r follow -up is recomm ended. [employer] TI-RAD S Catego michelle and Recomm endati ons (2017) : Page 1 [facility] [address] [place] [address] Patidana t Name: DARIA BENAVIDES Access ion #: [id number] Sex: F : 1965 1 Dictat ed By: Yolis Blair Attend ing Physic lori: FABIAN JOHNSON Orderi ng Physic lori: DARIAN PADILLA Exam Date: 2023 14:52 PM Exam Name: US NECK/H EAD SOFT TISSUE Admitt ing Diagno sis(es ): TR1: 0 points , Benign , No FNA TR2: 2 points , Not suspic ious, No FNA TR3: 3 points , Mildly suspic ious, FNA if > or = 2.5 cm, Follow if > or = 1.5 cm TR4: 4-6 points , Modera tely Suspic ious, FNA if > or = 1.5 cm, Follow if > or = 1.0 cm TR5: 7+ points , Highly Suspic ious, FNA if > or = 1.0 cm, Follow if > or = 0.5 cm Follow -up ultras ound guidel paul: TR5: yearly for 5 years, if no growth or change in TI-RAD S level TR4: at 1, 2, 3 and 5 years, if no growth or change in TI-RAD S level TR3: at 1, 3 and 5 years, if no growth or change in TI-RAD S level If increa sed but below thresh old for FNA, repeat in one year. Source : ACR Thyroi d Imagin g, Report ing and Data System (TI-RA DS): White Paper of the ACR TI-RAD S Commit fabiola. Rama et al., J Am Carlitos Radiol 2017;1 4:587- 595. Electr onical ly Signed by: Yolis Blair at 2023 16:00: 09 PM Page 2 [email or web address] [facility] (Imaging) [address] [place], [address], 10/16/2023 09:13:40 10/13/19 24 DEXA, axial skele ton [facility] [address] [place] [phone] Patidana t Name: DARIA BENAVIDES Access ion #: [id number] Sex: F : 1965 1 Dictat ed By: Dandy Recinos Attend ing Physic lori: DARIAN PADILLA Orderi Physic lori: DARIAN PADILLA Exam Date: 2023 15:03 PM Exam Name: XR DEXA AXIAL/ HIP/PE LVIS/S PINE Admitt ing Diagno sis(es ): INDICA TION: 58 years old, Female ; osteop orosis screen ing. Johnie white. DEXA SCAN: BONE DENSIT Y REPORT : AP SPINE (L1-L4 ) : T Score: 2.8 LEFT FEMORA L NECK : T Score: -0.6 RT FEMORA L NECK : T Score: -0.4 LEFT HIP TOTAL : T Score: 0.1 RT HIP TOTAL : T Score: 0.2 TOTAL BILAT HIP AVG: T Score: 0.2 IMPRES BRAD: Normal bone minera lizati on ------ ------ ------ ------ ------ ------ ------ ------ ----- *FRAX versio n 3.08. Fractu re probab ility calcul ated for an untrea j carlos patien t. Fractu re probab ility may be lower if the patien t has receiv ed treatm ent. T-scor e: compar juliano by chrystal white (BRENNEN) to a young adult popula unruly valdez for sex and ethnic ity (used for johnie white women and men >50 years) and classi fied by WHO criter ia. -1.0: normal Page 1 [facility] [address] [place] [address] [phone] Patien t Name: DARIA BENAVIDES Access ion #: [id number] Sex: F : 1965 1 Dictat ed By: Dandy Recinos Attend ing Physic lori: [facility] Physic [facility]: DARIAN PADILLA Exam Date: 2023 15:03 PM Exam Name: XR DEXA AXIAL/ HIP/PE LVIS/S PINE Admitt ing Diagno sis(es ): <-1.0 to >-2.5: osteop enia -2.5: osteop orosis -2.5 plus fragil ity fractu re: severe osteop orosis Z-scor e: compar ed by SD to an age, sex, and ethnic ity popula tion (used for premen opausa l women, men <50 years, and childr en instea d of T-scor e WHO criter ia 4) <-2.0: below expect ed range/ low bone densit y for age, and a cause should be sought Electr onical ly Signed by: Dandy Recinos at 2023 16:41: 55 PM Page 2 [email or web address] [facility] (Imaging) [address] [place], [address], 10/16/2023 09:13:40 Result Notes None recorded. Problems Name Problem SNOMED Code Status Onset Date Resolution Date Notes Provider Name and Address Organization Details Recorded Time Arthritis of right sacroilia c joint 29718362588 02448 Active 2019 Not Available [facility] 3 06:46:23 Tendiniti s of left shoulder 94037453098 88262 Active 2021 Not Available [facility] 3 06:46:23 Herpes labialis 0827914 Active 2018 Not Available [facility] 3 06:46:23 Pain of left shoulder joint 69309106810 778836 Active 2021 Not Available [facility] 3 06:46:23 Pain of left shoulder joint 93757108862 254465 Completed 201708/05/2019 Not Available [facility] 3 06:46:23 Pain in throat 809779039 Completed Not Available [facility] 3 06:46:24 Multinodu lar goiter 194695772 Active 2018 Not Available [facility] 3 06:46:24 Overweigh t 993332939 Active 2018 Not Available [facility] 3 06:46:24 Rupture of anterior cruciate ligament 664578871 Completed Not Available [facility] 3 06:46:24 Osteoarth ritis of knee 887851912 Active 2019 Not Available [facility] 3 06:46:24 Urinary symptoms 447567326 Completed Not Available [facility] 3 06:46:24 Basal cell carcinoma of skin 877286171 Active 2018 Not Available [facility] 3 06:46:24 Chronic allergic conjuncti vitis 02705586 Active 2019 Not Available [facility] 3 06:46:24 Gastroeso phageal reflux disease without esophagit is 243401065 Active 2017 Cecil Padilla MD [address] [place] [address], [id number] , [facility] 4 09:19:27 Thrombocy topenic disorder 364938432 Active 2018 Not Available [facility] 3 06:46:25 Effusion of joint of right knee 40916396057 9104 Active 2019 Not Available [facility] 3 06:46:25 Knee pain Completed Not Available [facility] 3 06:46:25 Bronchiti s 11698733 Completed Not Available [facility] 3 06:46:25 Viral disease 91549923 Completed Not Available [facility] 3 06:46:25 Vitamin D deficienc y 57700123 Active 2018 Not Available [facility] 3 06:46:25 Seasonal allergic rhinitis 684179680 Active 2017 Not Available [facility] 3 06:46:26 Fever 484642027 Completed Not Available [facility] 3 06:46:26 Dysphagia 87598417 Completed Not Available [facility] 3 06:46:26 Subclinic al hyperthyr oidism 160487474 Active 2018 Not Available [facility] 3 06:46:26 Acute urinary tract infection 545701066 Completed Not Available [facility] 3 06:46:26 Seasonal allergy 840244186 Completed Not Available [facility] 3 06:46:27 Cough 32891990 Completed Not Available [facility] 3 06:46:27 Upper respirato ry infection 59774399 Completed Not Available [facility] 3 06:46:27 Hyperlipi demia 33681200 Active 2018 Not Available [facility] 3 06:46:27 Allergic rhinitis 68786369 Completed Trinidad Dill NP [address], [address], [place], [address] , [employer] 3 11:58:10 Antalgic gait 36875191 Completed Not Available [facility] 3 06:46:28 Posterior rhinorrhe a 06197556 Completed Not Available [facility] 3 06:46:28 Leukopeni a 77157006 Active 2021 Not Available [facility] 3 06:46:28 Pain in limb 45405832 Completed Not Available [facility] 3 06:46:28 Skin lesion 06664337 Completed Not Available formerly [facility] 3 06:46:28 Sinusitis 19835267 Active 2022 Cecil Padilla MD [address], [address], [place], [address] , [employer] 3 09:06:27 Allergic rhinitis 14531505 Active 2022 Trinidad Dill NP [address], [address], [place], [address] , [employer] 3 11:58:10 Low back strain 674621158 Active 2023 Cecil Padilla MD [address], [address], [place], [address] , [employer] [facility] 4 11:49:21 Low back pain 980298471 Active 2023 Cecil Padilla MD [address], [address], [place], [address] , [employer] [facility] 4 11:49:46 Migraine without aura 54721100 Active 2023 Cecil Padilla MD [address], [place], [address] , [employer] 4 11:51:20 Allergic conjuncti vitis of bilateral eyes 86858298400 9102 Active 2023 Cecil Padilla MD [address], [address], [place], [address] , [employer] 4 09:23:10 Acute conjuncti vitis 51171568 Active 2023 Cecil Padilla MD [address], [address], [place], [address] , [employer] [facility] 4 08:57:51 Rectal hemorrhag e 74563590 Active 2012 Cecil Padilla MD [address], [place], [address] , [employer] [facility] 4 09:19:27 Dysphagia 33525291 Active 2023 Cecil Padilla MD [address], [place], [address] , [employer] 4 09:19:27 Seasonal allergy 174412300 Active 2023 Cecil Padilla MD [address], [place], [address] , [employer] [facility] 4 09:19:27 Anal fistula 601696922 Active 2012 Cecil Padilla MD [address] [address], [place], [address] , [employer] 4 09:19:27 Problem Notes None recorded. Procedures Surgical History Date Name Laterality Status Provider Name and Address Organization Details Recorded Time Hysterectomy, Partial completed Not Available [facility] 04/20/2022 06:40:11 Imaging Results Imaging Date Name Status LastModified by Organiz ation Details LastModified Time 10/11/2023 US, head + neck, soft tissue completed [id number] [facility] (Imaging) [address] [place], [address], 10/16/2023 09:13:40 10/13/2023 DEXA, axial skeleton completed [facility] (Imaging) [address] [place], [address], 10/16/2023 09:13:40 Procedure Notes None recorded. Medical Equipment None Reported. Allergies Allergen ID Allergen Name Allergen Category Reaction Reaction Severity Criticality Documentation Date Start Date Code Code System Note Provider Name and Address Organization Details Recorded Time 81435 Substance with sulfonami de structure and antibacte rial mechanism of action (substanc e) medicatio n hives Not available Not available 04/20/20222011 07512 8003 SNOMED Cecil Padilla MD [address], [address], [employer] 4 09:19:16 37444 morphine medicatio n itching Not available Not available 04/20/20222012 7052 RxNorm Cecil Padilla MD [address], [address], [employer] 4 09:19:16 Medications Name Sig Start Date Stop Date Status Note LastModified by Organization Details LastModified Time cyclobenz aprine 10 mg tablet TAKE 1 TABLET BY MOUTH EVERY 12 HOURS NEEDED FOR 15 DAYS active Not Available Not Available No t Available amoxicill in 500 mg capsule active Not Available Not Available Not Available atorvasta tin 40 mg tablet TAKE 1 TABLET BY MOUTH EVERYDAY AT BEDTIME active Not Available Not Available No t Available atorvasta tin 80 mg tablet TAKE 1 TABLET BY MOUTH EVERYDAY AT BEDTIME active Not Available Not Available No t Available azelastin e 0.05 % eye drops INSTILL 1 DROP INTO AFFECTED EYE TWICE A DAY 2023 active Not Available Not Available Not Avai lable atorvasta tin 20 mg tablet TAKE 1 TABLET BY MOUTH EVERYDAY AT BEDTIME 04/26 completed Not Available Not Available Not Available tizanidin e 2 mg tablet Take 1 tablet(s ) every 12 hours by oral route as needed for 15 days. 04/30 completed Not Available Not Available Not Available cetirizin e 10 mg tablet TAKE 1 TABLET BY MOUTH EVERY DAY NEEDED active Not Available Not Available No t Available azithromy luis alberto 250 mg tablet TAKE 2 TABLETS (500 MG) BY ORAL ROUTE ONCE DAILY FOR 1 DAY THEN 1 TABLET (250 MG) BY ORAL ROUTE ONCE DAILY FOR 4 DAYS 01/16 completed Not Available Not Available Not Available ibuprofen 800 mg tablet 01/16 completed Not Available Not Available Not Available fluconazo le 150 mg tablet Take 1 tablet as needed by oral route as directed for 1 day. 07/26 completed Not Available Not Available Not Available valacyclo vir 1 gram tablet TAKE 1 TABLET BY MOUTH TWICE A DAY FOR 3 DAYS NEEDED ONLY FOR COLD SORE. active Not Available Not Available No t Available clarithro mycin 500 mg tablet active Not Available Not Available No t Available hydrocodo ne 5 mg-acetam inophen 325 mg tablet 10/23 completed Not Available Not Available Not Available Claritin 10 mg tablet Take 1 tablet(s ) every day by oral route for 90 days. 06/03 completed takes it around spring Not Available Not Available Not Available meloxicam 15 mg tablet Take 1 tablet every day by oral route in the morning for 30 days. active Not Available Not Available No t Available prednison e 20 mg tablet TAKE 2 TABLETS BY MOUTH ONCE DAILY FOR 5 DAYS TAKE WITH FOOD 04/26 completed Not Available Not Available Not Available phentermi ne 15 mg capsule TAKE 1 CAPSULE EVERY DAY BEFORE BREAKFAS T FOR 30 DAYS. 12/12 completed Not Available Not Available Not Available sumatript an 50 mg tablet Take 1 tablet as needed by oral route as directed for 30 days. 2023 active Not Available Not Available Not Avai lable phentermi ne 37.5 mg tablet TAKE 1 TABLET BY MOUTH ONCE DAILY BEFORE A MEAL 08/04 completed Not Available Not Available Not Available clindamyc in 1 %-benzoyl peroxide 5 % topical gel APPLY TO ACNE AREAS ON FACE EVERY MORNING active Not Available Not Available No t Available tramadol 50 mg tablet TAKE 1 TABLET BY MOUTH EVERY 8 HOURS NEEDED FOR PAIN 07/05 completed Not Available Not Available Not Available phentermi ne 30 mg capsule TAKE 1 CAPSULE BY MOUTH EVERY DAY IN THE MORNING active Not Available Not Available No t Available Kenalog 40 mg/mL suspensio n for injection Take 1 mL as needed by injectio n route as directed for 1 day. 12/12 completed Not Available Not Available Not Available Macrobid 100 mg capsule Take 1 capsule every 12 hours by oral route for 7 days. active Not Available Not Available No t Available amoxicill in 875 mg tablet TAKE 1 TABLET BY MOUTH EVERY 12 HOURS WITH FOOD UNTIL FINISHED 12/12 completed Not Available Not Available Not Available amitripty line 25 mg tablet Take 25 mg by oral route. 12/12 completed Not Available Not Available Not Available estradiol 1 mg tablet TAKE 1 TABLET BY MOUTH EVERY DAY active Not Available Not Available No t Available ciproflox acin 0.3 % eye drops PLEASE SEE ATTACHED FOR DETAILED DIRECTIO NS 12/12 completed Not Available Not Available Not Available pantopraz ole 40 mg tablet,de layed release TAKE 1 TABLET BY MOUTH EVERY DAY IN THE MORNING active Not Available Not Available No t Available omeprazol e 20 mg capsule,d elayed release TAKE 1 CAPSULE BY MOUTH 30 MINUTES BEFORE BREAKFAS T 07/05 completed Not Available Not Available Not Available diclofena c sodium 75 mg tablet,de layed release TAKE 1 TABLET BY MOUTH EVERY 12 HOURS NEEDED active Not Available Not Available No t Available mont[address] st 10 mg tablet TAKE 1 TABLET BY MOUTH EVERY DAY IN THE EVENING active Not Available Not Available No t Available estradiol 0.5 mg tablet 0.5 mg every 24 hours by oral route. active Not Available Not Available No t Available ergocalci ferol (vitamin D2) 1,250 mcg (50,000 unit) capsule TAKE ONE CAPSULE BY MOUTH ONE TIME PER WEEK DIRECTED active Not Available Not Available No t Available methylpre dnisolone 4 mg tablets in a dose pack TAKE 6 TABLETS ON DAY 1 DIRECTED ON PACKAGE AND DECREASE BY 1 TAB EACH DAY FOR A TOTAL OF 6 DAYS 06/08 completed Not Available Not Available Not Available ketorolac 60 mg/2 mL intramusc ular solution Inject 1 mL as needed by intramus cular route as directed for 1 day. 08/06 completed Patient t.nasreen ed well Not Available Not Available Not Available fluticaso ne propionat e 50 mcg/actua tion nasal spray,emily pension SPRAY 2 SPRAYS EVERY DAY DIRECTED NEEDED. active Not Available Not Available No t Available amitripty line 100 mg tablet TAKE 1 TABLET BY MOUTH NIGHTLY AT BEDTIME. active Not Available Not Available No t Available doxycycli ne hyclate 100 mg tablet TAKE 1 TABLET BY MOUTH TWICE A DAY DIRECTED FOR 10 DAYS 07/05 completed Not Available Not Available Not Available naproxen 500 mg tablet Take 1 tablet every 12 hours by oral route as directed for 30 days. 07/26 completed With food. Not Available Not Available Not Available amoxicill in 875 mg-potass ium clavulana te 125 mg tablet TAKE 1 TABLET BY MOUTH EVERY 12 HOURS FOR 10 DAYS 04/26 completed Not Available Not Available Not Available ezetimibe 10 mg tablet TAKE 1/2 TABLET BY MOUTH EVERY DAY IN THE MORNING active Not Available Not Available No t Available Flovent HFA 110 mcg/actua tion aerosol inhaler active Not Available Not Available Not Available olopatadi ne 0.2 % eye drops INSTILL 1 DROP INTO AFFECTED EYE(S) ONCE DAILY NEEDED. active Not Available Not Available No t Available Flovent Diskus 50 mcg/actua tion powder for inhalatio n Inhale 1 puff twice a day by inhalati on route before meals for [address] Gregory prescrib es//PRN Not Available Not Available Not Available levocetir izine 5 mg tablet Take 1 tablet every day by oral route as directed for 90 days. active Not Available Not Available No t Available Mucinex DM 60 mg-1,200 mg tablet,ex tended release 12 hr Take 1 tablet twice a day by oral route as directed for 14 days. 02/04 completed Not Available Not Available Not Available Adacel (Tdap Adolesn/A dult)(PF) 2 Lf-(2.5-5 -3-5)-5 Lf/0.5 mL IM syringe 01/16 completed Not Available Not Available Not Available GaviLyte- G 236 gram-22.7 4 gram-6.74 gram-5.86 gram oral solution active Not Available Not Available Not Available Suprep Bowel Prep Kit 17.5 gram-3.13 gram-1.6 gram oral solution MIX AND TAKE DIRECTED BY active Not Available Not Available No t Available lidocaine 5 % topical ointment active Not Available Not Available Not Available Afluria 1809-6839 45 mcg (15 mcg x 3)/0.5 mL intramusc ular suspensio n active Not Available Not Available Not Available clindamyc in 1 %-benzoyl peroxide 5 % topical gel with pump APPLY TO ACNE AREAS EVERY MORNING active Not Available Not Available No t Available Fluzone Quad (P F) 60 mcg(15 mcgx4)/0. 5 mL intramusc ular syringe 01/16 completed Not Available Not Available Not Available Aimovig Autoinjec tor 70 mg/mL subcutane ous auto-inje ctor INJECT 1 ML (70 MG TOTAL) INTO THE SKIN EVERY 30 DAYS active Not Available Not Available No t Available Afluria Quad 0820-7962 (PF) 60 mcg (15 mcg x 4)/0.5 mL IM syringe 01/16 completed Not Available Not Available Not Available Fluzone Quad 60 mcg (15 mcg x 4)/0.5 mL intramusc ular susp. 06/03 completed Not Available Not Available Not Available Ubrelvy 100 mg tablet PLEASE SEE ATTACHED FOR DETAILED DIRECTIO NS active Not Available Not Available No t Available Nurtec ODT 75 mg disintegr ating tablet Take 1 tablet every other day by oral route as needed for 30 days. 12/12 completed Not Available Not Available Not Available ID NOW COVID-19 Test Kit TEST DIRECTED 06/16 completed Not Available Not Available Not Available Flublok Quad (PF) 180 mcg (45 mcg x 4)/0.5 mL IM syringe PHARMACY ADMINIST ERED 02/11 completed Not Available Not Available Not Available Qulipta 60 mg tablet Take 1 tablet every day by oral route in the morning for 90 days. active Not Available Not Available No t Available Qulipta 30 mg tablet Take 1 tablet every day by oral route as directed for 30 days. 12/12 completed Not Available Not Available Not Available Zepbound 2.5 mg/0.5 mL subcutane ous pen injector Inject 2.5 mg every week by subcutan eous route as directed . 12/12 completed Not Available Not Available Not Available Vitals Date Recorded Body height Body mass index (BMI) Body weight Body temperature Heart rate Respiratory rate Oxygen saturation Oxygen saturation in Arterial blood by Pulse oximetry Systolic blood pressure Diastolic blood pressure Provider Name and Address Organization Details Last Updated DateTime 4 177.8 cm 25 kg/m2 98009.4 2 g 98.1 [degF] 86 /min 16 /min 98 % 98 % 122 mm[Hg] 76 mm[Hg] Ruben [facility] [employer] 4 09:12:02 Date Recorded Body height Body mass index (BMI) Body weight Body temperature Heart rate Respiratory rate Oxygen saturation Oxygen saturation in Arterial blood by Pulse oximetry Systolic blood pressure Diastolic blood pressure Provider Name and Address Organization Details Last Updated DateTime 4 177.8 cm 25.8 kg/m2 17374.9 8 g 98.1 [degF] 78 /min 16 /min 98 % 98 % 122 mm[Hg] 76 mm[Hg] Ruben [facility] [employer] 4 09:11:52 Date Recorded Body height Body mass index (BMI) Body weight Body temperature Heart rate Respiratory rate Oxygen saturation Oxygen saturation in Arterial blood by Pulse oximetry Systolic blood pressure Diastolic blood pressure Provider Name and Address Organization Details Last Updated DateTime 4 177.8 cm 25.3 kg/m2 70481.6 1 g 98.4 [degF] 80 /min 16 /min 98 % 98 % 118 mm[Hg] 72 mm[Hg] Ruben [facility] [employer] 4 09:06:13 Social History Question Answer Notes LastModified by Organization Details LastModified Time Tobacco Smoking Status Never Smoker Not Available [employer] 04/20/2022 06:39:52 Do You Have An Advance Directive? Yes MIGRATION.0301 [id number] Information not available 04/20/2022 Do You Wear A Helmet When Biking? No MIGRATION.0301 [id number] Information not available 04/20/2022 What Is Your Level Of Caffeine Consumption? Heavy MIGRATION.030 [id number] Information not available 04/20/2022 In The 14 Days Before Symptom Onset, Have You Had Close Contact With A Laboratory-conf irmed COVID-19 While That Case Was Ill? No MIGRATION.030 [id number] Information not available 04/20/2022 In The 14 Days Before Symptom Onset, Have You Had Close Contact With A Person Who Is Under Investigation For COVID-19 While That Person Was Ill? No MIGRATION.030 [id number] Information not available 04/20/2022 What Type Of Diet Are You Following? REGULAR Low Calories MIGRATION.030 [id number] Information not available 04/20/2022 What Is The Highest Grade Or Level Of School You Have Completed Or The Highest Degree You Have Received? 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 No MIGRATION.0301 [id number] Information not available 04/20/2022 What Is The Fluoride Status Of Your Home? Unknown MIGRATION.030 [id number] Information not available 04/20/2022 Are There Any Guns Present In Your Home? No MIGRATION.030 [id number] Information not available 04/20/2022 Do You Use Insect Repellent Routinely? Yes MIGRATION.0301 [id number] Information not available 04/20/2022 Where Do You Live? [place]House MIGRATION.030 [id number] Information not available 04/20/2022 Do You Have A Medical Power Of Percussion Instrument Tuner? Yes MIGRATION.0301 [id number] Information not available 04/20/2022 Do You Have Any Pets? No MIGRATION.0301 [id number] Information not available 04/20/2022 What Is Your Relationship Status? MIGRATION.0301 [id number] Information not available 04/20/2022 Do You Use Your Seat Belt Or Car Seat Routinely? Yes MIGRATION.0301 [id number] Information not available 04/20/2022 Do You Have Smoke And Carbon Monoxide Detectors In Your Home? Yes MIGRATION.0301 [id number] Information not available 04/20/2022 Are You Passively Exposed To Smoke? No MIGRATION.0301 [id number] Information not available 04/20/2022 Are There Any Smokers In Your House? No MIGRATION.0301 [id number] Information not available 04/20/2022 Do You Participate In Social Media? Yes MIGRATION.0301 [id number] Information not available 04/20/2022 Do You Feel Stressed (tense, Restless, Nervous, Or Anxious, Or Unable To Sleep At Night)? [id number] MIGRATION.0301 [id number] Information not available 04/20/2022 Do You Use Any Illicit Or Recreational Drugs? No MIGRATION.0301 [id number] Information not available 04/20/2022 Do You Use Sunscreen Routinely? Yes MIGRATION.0301 [id number] Information not available 04/20/2022 Has Tobacco Cessation Counseling Been Provided? No MIGRATION.0301 [id number] Information not available 04/20/2022 Have You Recently Traveled Abroad? No MIGRATION.0301 [id number] Information not available 04/20/2022 Are You Currently In School? No MIGRATION.0301 [id number] Information not available 04/20/2022 Do You Have Any Dietary Restrictions? No MIGRATION.0301 [id number] Information not available 04/20/2022 Do You Or Have You Ever Used Any Other Forms Of Tobacco Or Nicotine? No MIGRATION.0301 [id number] Information not available 04/20/2022 Sex: Female Functional Status Question Answer Note LastModified by Organizat ion Details LastModified Time What is your exercise level? Heavy MIGRATION.[id number] Information not available 04/20/2022 Mental Status None recorded. Family History Relationship Description Onset Age of this Age Resolved Age Notes LastModified by Organization Details LastModified Time Unspecified Relation Family history of malignant neoplasm [id number].[id number] Not available 04/20/2022 06:40:14 Unspecified Relation Heart disease MIGRATION.324 [id number] Not available 04/20/2022 06:40:14 Medical History Condition Response BLINDNESS N RHEUMATIC FEVER N KIDNEY STONES N BLADDER PROBLEMS N MRSA N OTHER # 1 N POLIO N LUNG DISEASE/DISORDER N RADIATION / CHEMOTHERAPY N COPD N Other # 2 N BLOOD DISEASES N SURGERY N EAR OR HEARING PROBLEMS N MUMPS N FEMALE PROBLEMS / INFECTIONS N BOWEL PROBLEMS N DEPRESSION (INCLUDING POST ) N STROKE/TIA N THYROID DISEASE N ULCERS N BENIGN PROSTATIC HYPERPLASIA N MEASLES N CERVICALGIA N TB SKIN TEST N MYOCARDIAL INFARCTION N PARAPELGIA N OBESITY N GERD/NAUSEA N ANEURYSM N URINARY/BLADDER/KIDNEY PROBLEMS N CORONARY ARTERY DISEASE (CAD) N MENIERE'S DISEASE N ADDICTION CONCERNS N ENDOMETRIOSIS N USE OF BLOOD THINNERS N SKIN PROBLEMS N EMPHYSEMA N GASTROINTESTINAL DISORDER N MUSCLE,JOINT OR BONE PROBLEMS N GASTROINTESTINAL BLEEDING N BLOOD CLOTS N ASTHMA N CATARACTS N ERECTILE DYSFUNCTION N GI PROBLEMS N CHF N Low Testosterone N NEUROPATHY N INFERTILITY N AIDS/HIV N FRACTURES N CHEMOTHERAPY / RADIATION N VISION/EYE PROBLEMS N LIVER DISEASE N MALE HYPOGONADISM N HYPERTENSION N TOURETTE'S N ANXIETY DISORDER N BLOOD TRANSFUSION N ANEMIA/BLOOD DISORDER N CHRONIC EAR INFECTIONS N BRONCHITIS N TUBERCULOSIS N GLAUCOMA N FOOT PROBLEM N DIVERTICULITIS N SLEEP APNEA N CHICKENPOX N ALLERGIES/HAYFEVER N INFECTIOUS DISEASE N PROSTATE N HEART ARRHYTHMIA N INSOMNIA N HIGH CHOLESTEROL / HYPERLIPIDEMIA N EYE PROBLEMS N HYPERTHYROIDISM N EATING DISORDER N EDEMA N CHRONIC PAIN SYNDROME N CONSTIPATION N CAROTID BLOCKAGE N BACK / NECK PROBLEMS N HAVE YOU BEEN HOSPITALIZED OR SEEN IN [facility] IN THE PAST YEAR ? N ATHEROSCLEROSIS N BREAST PROBLEMS N DIALYSIS N ECZEMA N FIBROMYALGIA N OSTEOPOROSIS N ARTHRITIS N NO SIGNIFICANT PAST MEDICAL HISTORY N APPENDICITIS N DIABETES, TYPE N BAD TEETH N HEARTBURN / REFLUX N ADD/ADHD N AUTISM SPECTRUM DISORDER (ASD) N HEPATITIS / LIVER DISEASE N PULMONARY DISEASE N GOUT N SLEEP DISORDER N ALZHEIMER'S DISEASE N PAIN N DEMENTIA N HERPES N SEIZURES/EPILEPSY N HEADACHES/MIGRAINES N VASCULAR DISEASE N PACEMAKER N DIZZINESS N HEART DISEASE/HEART PROBLEMS N KIDNEY DISEASE N SCARLET FEVER N MULTIPLE SCLEROSIS N DEVELOPMENTAL OR BEHAVIORAL DISORDERS N MENTAL DISORDER/ILLNESS N CANCER: SPECIFY N CARDIAC ARRHYTHMIA N PNEUMONIA N ATRIAL FIBRILLATION N Gall Stones N PULMONARY EMBOLISM N AUTOIMMUNE DISEASE N Gynecological HistoryNo gynecological history recorded. Obstetrics History GPAL:G 0 P 0 0 0 0 Immunizations Vaccine Type Date Status Note Provider Nam e and Address Organization Details Recorded Time influenza, unspecified formulation 7 completed Cecil Padilla MD [address] [place] [address], [address] [address], [place], [address], [facility] [employer] 12/13/2023 09:19:42 influenza, unspecified formulation 2 completed Cecil Padilla MD [address], [place], [address], [facility] [employer] [facility] 12/13/2023 09:19:42 influenza, unspecified formulation 1 completed Cecil Padilla MD [address], [place], [address], [facility] [employer] [facility] 12/13/2023 09:19:42 influenza, unspecified formulation 5 completed Cecil Padilla MD [address], [place], [address], [facility] [employer] 12/13/2023 09:19:42 influenza, unspecified formulation 4 completed Cecil Padilla MD [address], [place], [address], [facility] [employer] 12/13/2023 09:19:42 influenza, unspecified formulation 0 completed Cecil Padilla MD [address], [place], [address], [facility] [employer] 12/13/2023 09:19:42 COVID-19, mRNA, LNP-S, PF, 30 mcg/0.3 mL dose 1 completed Not Available formerly [facility] 04/20/2022 06:53:39 Influenza, split virus, quadrivalent, PF 1 completed Cecil Padilla MD [address], [place], [address], [facility] [employer] [facility] 12/13/2023 09:19:42 Influenza, split virus, trivalent, preservative 5 completed Cecil Padilla MD [address], [place], [address], [facility] [employer] [facility] 12/13/2023 09:19:42 Influenza, split virus, trivalent, preservative 4 completed Cecil Padilla MD [address], [place], [address], [place] [employer] 12/13/2023 09:19:42 Influenza, split virus, quadrivalent, preservative 7 completed Cecil Padilla MD [address], [place], [address], [place] [employer] 12/13/2023 09:19:42 Influenza, split virus, quadrivalent, PF 2 completed Cecil Padilla MD [address], [place], [address], [place] [employer] 12/13/2023 09:19:42 Past Encounters Encounter ID Performer Location Encounter Start Date Encounter Closed Date Diagnosis/Indication Diagnosis SNOMED-CT Code Diagnosis ICD10 Code Diagnosis Note [id number] [facility] [address] [place] [address] 06/16/2020 00:00:00 06/16/2020 11:45:56 [id number] [facility] [address] [place] [address] 10/15/2020 00:00:00 10/15/2020 11:30:45 [id number] [facility] [address] [place] [address] 05/28/2021 00:00:00 05/28/2021 18:04:03 [id number] [facility] [address] [place] [address] 06/08/2021 00:00:00 06/08/2021 09:37:41 [id number] [facility] [address] [place] [address] 07/07/2021 00:00:00 07/07/2021 10:25:05 [id number] [facility] [address] [place] [address] 12/20/2021 00:00:00 12/20/2021 09:17:52 [id number] Cecil Padilla MD [facility] Abdi [address] [place] [id number] 1 04/26/2022 08:45:10 04/26/2022 09:12:57 Hyperlipidemia 73506707 E78.5 Sinusitis 86777425 J32.9 Seasonal a llergic rhinitis 218852823 J30.2 [id number] Trinidad Dill NP [address] [address] 05/26/2022 08:36:40 05/26/2022 09:27:39 Allergic rhinitis 16579195 J30.9 [id number] Cecil Padilla MD [address] [address] 1 07/05/2022 08:44:08 07/05/2022 09:25:39 Adult health examination 044279041 Z00.00 Multinodular goiter 2375 98671 E04.2 Overweight 969319048 E66 .3 Vitamin D deficiency 347 24172 E55.9 Osteoarthr itis of knee 890426295 M17.9 Allergic rhinitis 470915 04 J30.9 [id number] Cecil Padilla MD [address] [address] 1 07/19/2022 16:22:45 07/19/2022 16:45:04 Multinodular goiter 763944101 E04.2 Overweight 177861803 E66 .3 Vitamin D deficiency 347 90787 E55.9 Improved Osteoarthr itis of knee 837028122 M17.9 Allergic rhinitis 699175 04 J30.9 Hyperlipidemia 41626878 E78.5 [id number] Cecil Padilla MD [address] [address] 1 10/03/2022 08:45:32 10/03/2022 09:27:49 Multinodular goiter 843767748 E04.2 Overweight 411290132 E66 .3 Allergic rhinitis 653157 04 J30.9 [id number] Cecil Padilla MD [address] [place] [address] 03/06/2023 11:36:51 03/06/2023 12:06:41 Low back strain 029680751 S39.012A Rt Low back pain 113458649 M54.50 Migraine without aura 56 891849 G43.765 [id number] Cecil Padilla MD [address] [address] 1 05/29/2023 16:43:18 05/29/2023 17:17:58 Allergic rhinitis 29772169 J30.9 [id number] Cecil Padilla MD [address] [address] 1 07/06/2023 09:06:02 07/06/2023 09:33:58 Multinodular goiter 891887276 E04.2 Overweight 788123714 E66 .3 Allergic rhinitis 250406 04 J30.9 Adult [facility] th examination 811605208 Z00.00 Screening for osteoporosis 126927608 Z13.820 Vitamin D deficiency 347 84437 E55.9 Improved Migraine without aura 56 830955 G43.009 Allergic conjunctivitis of bilateral eyes 8584630719 12153 H10.13 [id number] Cecil Padilla MD [address] [address] 1 08/07/2023 17:24:22 08/07/2023 17:57:20 Multinodular goiter 226617539 E04.2 Overweight 951548121 E66 .3 Allergic rhinitis 427686 04 J30.9 Vitamin D deficiency 347 72415 E55.9 Improved Migraine without aura 56 920744 G43.009 Hyperlipidemia 93870239 E78.5 [id number] Cecil Padilla MD [address] [address] 1 10/16/2023 09:04:22 10/16/2023 10:05:31 Hyperlipidemia 72140873 E78.5 Multinodular goiter 2375 27237 E04.2 Overweight 157633140 E66 .3 Allergic rhinitis 023170 04 J30.9 Vitamin D deficiency 347 65489 E55.9 Improved Migraine without aura 56 311366 G43.009 Gastroesop hageal reflux disease without esophagitis 314562179 K21.9 [id number] Cecil Padilla MD [facility] [address] [address] 12/13/2023 08:57:06 12/13/2023 09:19:59 Hyperlipidemia 67779085 E78.5 Multinodular goiter 2375 12590 E04.2 Overweight 643094326 E66 .3 Migraine without aura 56 782414 G43.009 Health Concerns Section Related Observation LastModified by Organization Detai ls LastModified Time None Recorded Concern Status LastModified by Organization Details LastModified Time None Recorded Advance Directives Directive Y: Payers Encounter Date Sequence Insurance Name Policy Number Policy Mccann Covered Member ID Mccann Member ID Guarantor Name 05/29/[address] [place] [id number] [facility] 07/06/[address] [place] [id number] [facility] 08/07/2023 1 [place] [id number] Daria M Mabrey [id number] Daria [facility] 10/16/2023 1 [place] [address] Daria Mabrey [id number] [facility] 12/13/2023 1 [facility] [id number] [place] [address] M[place]rey [id number] [facility] Notes Date Note Type Note Provider Name and Address Organization Details Recorded Time 07/06/2023 text/html Pt is here for h er annual exam. Doing overall well. Denies any new concerns. Pt wants to get her labs done here today.Her Lt shoulder pain is gone and no more concern with it.Doing well with her GERD. Denies any blood in stool. Pt is f/u with Dr. Gregory (GI) for it. Cecil Padilla MD [address] [place] [address], [place] [address], [place], [address], [facility] 07/06/2023 09:32:10 08/07/2023 text/html Telephone visit. F/u on annual labs. Doing overall well. Denies any new concerns.Her Lt shoulder pain is gone and no more concern with it.Doing well with her GERD. Denies any blood in stool. Pt is f/u with Dr. Gregory (GI) for it. Cecil Padilla MD [address] [facility], [place] [address], [place], [address], [facility] [employer] 08/07/2023 17:55:52 10/16/2023 text/html Pt is here for f /u on her lab, US and chronic conditions. Doing overall well. Denies any new concerns. Pt wants to go back on Phentermine for her wt concern. Pt did well with it in the past.Her Lt shoulder pain is gone and no more concern with it. Pt is f/u with [facility] at [place] for her chronic headaches and is on meds by them for it.Doing well with her GERD. Denies any blood in stool. Pt is f/u with Dr. Gregory () for it. Cecil Padilla MD [address] [facility], [place] [address], [place], [address], [facility] [employer] 10/16/2023 10:01:49 12/13/2023 text/html Pt is here for f /u on her meds and chronic conditions. Doing overall well. Denies any new concerns. Doing well with Phentermine. So far, 4 lbs wt loss on it.Her Lt shoulder pain is gone and no more concern with it. Pt is f/u with Neuro at [place] for her chronic headaches and is on meds by them for it.Doing well with her GERD. Denies any blood in stool. Pt is f/u with Dr. Gregory () for it. Cecil Padilla MD [address] [facility], [place] [address], [place], [address], [facility] [employer] 12/13/2023 09:22:35 OBGyn Episode No OBEpisode recorded.
[2024-06-18 06:23] VITALS: BP 126/85; PULSE 75; RESP 20; TEMP 35.9; O2SAT 100; BMI 24.7
[2024-06-18] MEDS: LACTATED RINGERS 1,000 ML 150 ML IV CONT (06:47)
--- NOTE | 2024-06-18 07:14 | P.PNAN_ITS ---
Anes - Initial Pre Proc Eval Procedure: Operation Date: 06/18/24 07:30 Proposed Procedures p Colonoscopy - Barrington Seaman MD Date/Time: 06/18/24 07:14 Surgeon: Barrington Seaman MD Pre Op Diagnosis: Family hx colon cancer Patient Data Age: 59 Gender: F Height: 1.75 m Weight: 75.9 kg Last Vital Signs Temp 96.7 F L 06/18/24 06:23 Pulse 75 06/18/24 06:23 Resp 20 06/18/24 06:23 BP 126/85 06/18/24 06:23 Pulse Ox 100 06/18/24 06:23 O2 Del Method Room Air 06/18/24 06:23 Allergies Allergy/AdvReac Type Severity Reaction Status Date / Time morphine AdvReac Mild HIVES Verified 06/18/24 06:22 Sulfa (Sulfonamide AdvReac Mild HIVES Verified 06/18/24 06:22 Antibiotics) Home Medications ?Medication ?Instructions ?Recorded ?Confirmed ?Type cetirizine 10 mg tablet (Zyrtec) 10 mg PO DAILY 09/24/19 06/18/24 History estradiol 1 mg tablet (Estrace) 0.5 mg PO DAILY 07/27/21 06/18/24 History pantoprazole 40 mg tablet,delayed See Rx Instructions .Route 08/17/22 06/18/24 Rx release .COMPLEX #90 tabs amitriptyline 25 mg tablet 25 mg PO HS 11/26/23 06/18/24 History ezetimibe 10 mg tablet 5 mg PO DAILY 11/26/23 06/18/24 History levocetirizine 5 mg tablet 5 mg PO DAILY 11/26/23 06/18/24 History valacyclovir 1 gram tablet 1 mg PO PRN PRN Cold Sores 11/26/23 06/06/24 History atorvastatin 80 mg tablet 80 mg PO DAILY 06/06/24 06/18/24 History Patient hx anesthesia problems: none Family hx anesthesia problems: none Results Review: All pre-operative results and documents have been reviewed as part of the pre- operative evaluation. [facility] Past Medical History Medical History Eosinophilic esophagitis Family hx of colon cancer Social History Social History Smoking status: Never smoker Alcohol intake: current Drinks per week: 2 Substance use type: does not use Living arrangements: with family Gender identity (if verbalized by the patient): Female Sexual Orientation (if Verbalized by the Patient): Straight or Heterosexual Spiritual care concerns: No Anes - Eval Final PreProcedure Day of Procedure 06/18/24 07:14 Patient weight: normal Heart: regular rate and rhythm Lungs: clear to auscultation Airway: Mallampati scale class II Neurological: alert and oriented Last oral intake: >/= 8 hours ASA classification: II Emergent: no Anesthetic plan: proceed Anesthesia type and monitoring: general GIVS and standard monitoring Results Review: All pre-operative results and documents have been reviewed as part of the pre- operative evaluation. Informed Consent: The patient's anesthetic plan and its attendant risks and benefits were discussed with the patient/family/POA. Questions were solicited and answers provided to the satisfaction of the patient/family/POA.
--- NOTE | 2024-06-18 07:21 | PM.HPGS ---
History of Present Illness History of Present Illness Consent: Risks, benefits, and alternatives have been discussed and questions answered. Patient agrees to proceed with procedure. Chief complaint: Family hx colon cancer Narrative: Daria Guillaume is a 59 year old female with last colonoscopy 5 years ago, mother had colon cancer Review of Systems Review of Systems: All systems reviewed & are unremarkable except as noted in HPI and below PMFSH Past Medical History Medical History Eosinophilic esophagitis Family hx of colon cancer Social History Social History Smoking status: Never smoker Alcohol intake: current Drinks per week: 2 Substance use type: does not use Living arrangements: with family Gender identity (if verbalized by the patient): Female Sexual Orientation (if Verbalized by the Patient): Straight or Heterosexual Spiritual care concerns: No Meds Home Medications and Allergies Home Medications ?Medication ?Instructions ?Recorded ?Confirmed ?Type cetirizine 10 mg tablet (Zyrtec) 10 mg PO DAILY 09/24/19 06/18/24 History estradiol 1 mg tablet (Estrace) 0.5 mg PO DAILY 07/27/21 06/18/24 History pantoprazole 40 mg tablet,delayed See Rx Instructions .Route 08/17/22 06/18/24 Rx release .COMPLEX #90 tabs amitriptyline 25 mg tablet 25 mg PO HS 11/26/23 06/18/24 History ezetimibe 10 mg tablet 5 mg PO DAILY 11/26/23 06/18/24 History levocetirizine 5 mg tablet 5 mg PO DAILY 11/26/23 06/18/24 History valacyclovir 1 gram tablet 1 mg PO PRN PRN Cold Sores 11/26/23 06/06/24 History atorvastatin 80 mg tablet 80 mg PO DAILY 06/06/24 06/18/24 History Allergies Allergy/AdvReac Type Severity Reaction Status Date / Time morphine AdvReac Mild HIVES Verified 06/18/24 06:22 Sulfa (Sulfonamide AdvReac Mild HIVES Verified 06/18/24 06:22 Antibiotics) Vital Signs Vital Signs - 24 hr 06/18/24 06:23 Temperature 96.7 F L Pulse Rate 75 Respiratory Rate 20 Blood Pressure 126/85 Pulse Oximetry 100 Oxygen Delivery Room Air Exam Const: General: comfortable and no acute distress HENMT: Face/Nose/Sinus: Normal nares present Eyes: General: appearance normal, both eyes and all related structures Neck: Neck: no JVD Resp: Auscultation: clear to auscultation bilaterally Cardio: Rate: regular rate Rhythm: regular rhythm GI: Inspection: non-distended GI Palp: Yes Soft to palpation Skin: General skin exam: normal color Neuro: General: gait normal Speech: normal speech Extrem: General: normal to inspection Psych: Mental Status: mental status grossly normal Assessment and Plan Assessment and plan (1) Family hx of colon cancer: Code(s): Z80.0 - Family history of malignant neoplasm of digestive organs Status: Acute Assessment and Plan: colonoscopy
[2024-06-18 07:46] VITALS: BP 91/49; PULSE 83; RESP 20; O2SAT 100
[2024-06-18 07:56] VITALS: BP 91/58; PULSE 69; RESP 20; O2SAT 100
[2024-06-18 08:06] VITALS: BP 90/54; PULSE 66; RESP 20; O2SAT 96
== END 2024-06-18 08:17 | disposition home or self-care (01) ==
PROVIDERS: PCP Nurse Practitioner Family; Referring Provider Family Medicine; Visit Provider Internal Medicine Gastroenterology
PROC: 0DJD8ZZ Inspection of Lower Intestinal Tract, Via Natural or Artificial Opening Endoscopic (ICD-10-PCS; CPT 45378; principal; 2024-06-18 07:30)
DX: Z12.11 Encounter for screening for malignant neoplasm of colon (principal); D12.8 Benign neoplasm of rectum; K63.5 Polyp of colon; K64.8 Other hemorrhoids; K57.30 Diverticulosis of large intestine without perforation or abscess without bleeding; Z87.19 Personal history of other diseases of the digestive system; Z80.0 Family history of malignant neoplasm of digestive organs
CPT/HCPCS: 45385; 88305; J2003; J2704; J7120